=== PATIENT | male | born 1960 | race Caucasian/White ===

== ENCOUNTER 2018-06-22 10:08 | Emergency (ER) | payer OTHER, SELFPAY ==
[2018-06-22] VITALS (8 sets, daily range): BP systolic 100–121; BP diastolic 56–77; PULSE 61–107; RESP 15–23; TEMP 36.7; O2SAT 97–99
[2018-06-22 11:01] LABS: Add Manual Diff / Slide Review NO; Basophils Absolute Auto 100 /uL (0-100); Basophils Percent Auto 1.2 % (0-2); Eosinophils Absolute Auto 100 /uL (0-450); Eosinophils Percent Auto 2.2 % (2-4); Hematocrit 42.5 % (41-53); Hemoglobin 14.5 g/dL (13.5-17.5); Lymphocytes Absolute Auto 1200 /uL (1100-4500); Lymphocytes Percent Auto 22.1 % (25-40); Mean Corpuscular Volume 82.5 fL (80-100); Monocytes Absolute Auto 600 /uL (0-900); Monocytes Percent Auto 10.3 % (3-14); Neutrophils Absolute Auto 3600 /uL (1500-7000); Neutrophils Percent Auto 64.2 % (50-75); Platelet Count 144 X10^3/uL (150-400); Red Blood Cell Count 5.16 X10^6/uL (4.5-5.9); Red Cell Distribution Width 14.3 % (11.6-14.8); White Blood Cell Count 5.6 X10^3/uL (4.5-11.0)
[2018-06-22 11:04] LABS: Alanine Aminotransferase 38 IU/L (21-72); Albumin 4.2 g/dL (3.5-5.0); Albumin Globulin Ratio 1.5 (1.0-2.8); Alkaline Phosphatase 55 U/L (38-126); Aspartate Aminotransferase 27 IU/L (17-59); BUN Creatinine Ratio 26.9 (6-22); Bilirubin Total 0.8 mg/dL (0.2-1.3); Blood Urea Nitrogen 43 mg/dL (9-20); Calcium 9.2 mg/dL (8.4-10.2); Carbon Dioxide 22 mmol/L (22-32); Chloride 102 mmol/L (98-107); Creatine Kinase 140 U/L (55-170); Estimated Glomerular Filt Rate 44.6 mL/min (>60); Globulin 2.8 g/dL (1.7-4.1); Glucose 249 mg/dL (70-100); Potassium 4.5 mmol/L (3.4-5.1); Sodium 137 mmol/L (137-145)
[2018-06-22] MEDS: SODIUM CHLORIDE 0.9% 1,000 ML 1000 ML IV (11:06)
[2018-06-22 11:16] LABS: Troponin I < 0.012 ng/mL (0.01-0.034)
[2018-06-22 11:20] LABS: CKMB % Relative Index 1.8 % (1.5-5.0); Creatine Kinase MB 2.46 ng/mL (<2.37); HEMOLYSIS 30 (0-50)
[2018-06-22] MEDS: DIGOXIN 500 MCG/2 ML AMPUL 250 MCG IV (11:24)
--- NOTE | 2018-06-26 13:03 | ED_ITS ---
HPI - Dizziness General Chief Complaint: Dizziness Stated Complaint: LOW BP Time Seen by Provider: 06/22/18 10:16 Source: patient and family Mode of arrival: ambulatory Limitations: no limitations History of Present Illness HPI Narrative: Patient states that he was at [employer] today when he felt lightheaded. Pt states he sat down on the pew and felt somewhat better but ultimately, decided to come to the emergency department because he still had a faint sense of lightheadedness. Patient states that now, he is feeling totally normal. Patient denies chest pain, shortness of breath, or palpitations. No nausea or vomiting. No diaphoresis. Patient has had an episode like this occasionally before, but not associated with any other symptoms. Patient states he has otherwise been feeling well and has no complaints. No swelling in his legs. No calf tenderness or pain. Patient does admit to not drinking as much fluid as he should. No recent vomiting or diarrhea. No other complaints at this time. No known history of dysrhythmia. Patient is diabetic, and also takes carvedilol for hypertension. His carvedilol dose was recently increased, though patient denies having any symptoms in preceding days associated with taking his medication. Related Data Home Medications Medication Instructions Recorded Confirmed acetaminophen 500 mg PO #0 tab 12/01/15 omeprazole 20 mg PO QDAY #0 12/01/15 Review of Systems Constitutional Denies chills, Denies fever(s), Denies lethargy and Denies weakness Eyes Denies change in vision, Denies eye discharge, Denies irritation and Denies loss of vision ENT Ears, Nose, Mouth, and Throat: Denies change in voice, Denies neck pain and Denies sore throat Cardiovascular Denies chest pain, Denies irregular heart rhythm, Reports lightheadedness, Denies palpitations, Denies dyspnea, Denies dyspnea on exertion and Denies orthopnea Respiratory Denies cough, Denies dyspnea, Denies dyspnea on exertion and Denies wheezing Gastrointestinal Gastrointestinal: Denies abdominal pain, Denies change in bowel habits, Denies diarrhea, Denies nausea and Denies vomiting Genitourinary Denies hematuria, Denies flank pain, Denies urinary incontinence and Denies urinary urgency Musculoskeletal Denies neck pain Integumentary/Breasts Denies pruritus, Denies erythema, Denies rash and Denies wounds Neurologic Denies confusion, Denies loss of vision and Denies weakness Psychiatric Denies anxiety, Denies confusion, Denies depression, Denies homicidal ideation and Denies suicidal ideation Endocrine Denies palpitations Hematologic/Lymphatic Denies easy bruising Allergic/Immunologic Denies wheezing PFSH Medical History HTN (hypertension) (Acute) Diabetes (Acute) Surgical History No pertinent past surgical history (Acute) Social History Smoking Status: Never smoker Social History Smoking Status: Never smoker Exam Initial Vital Signs Initial Vital Signs: Vital Signs Temperature 98.1 F 06/22/18 10:22 Pulse Rate 103 H 06/22/18 10:22 Respiratory Rate 20 06/22/18 10:22 Blood Pressure 100/74 06/22/18 10:22 Pulse Oximetry 98 06/22/18 10:22 Const General: cooperative and well developed Nutritional Appearance: well nourished Orientation: alert, awake, oriented x3 and not confused HENMT Head: normocephalic and atraumatic Ears: external ears normal Nose: external nose normal and No nasal discharge Face and sinus: face symmetric and No dry mucous membranes Mouth: oral mucosae normal and moist mucous membranes Teeth and gingiva: dentition normal Eyes General: appearance normal, both eyes and all related structures Eyelids: eyelids normal Conjunctivae: conjunctivae normal Sclera: sclerae normal Pupils: PERRL EOM: EOM intact bilaterally Neck Neck: normal visual inspection, trachea midline, No lymphadenopathy, No midline deformity and No JVD Lymphatic: No lymphedema Chest Chest: normal inspection of the chest Resp Effort & Inspection: normal respiratory effort, able to speak in complete sentences, no respiratory distress and no use of accessory muscles Auscultation: clear to auscultation bilaterally, no rales, no rhonchi and no wheezes Cardio Rate: abnormal rate Rhythm: abnormal rhythm ( Irregularly irregular) Heart Sounds: no click, no gallops, no murmurs and no rubs Pulses: normal peripheral pulses GI Inspection: non-distended Palpation: soft, no hepatosplenomegaly, No guarding, No pulsatile mass and No tender Auscultation: normal bowel sounds Back/Spine/Pelvis Back: No CVA tenderness Cervical Spine: cervical ROM normal and No pain with cervical ROM Thoracic/Lumbar Spine: thoracic and lumbar spine normal to inspection Skin General: no rashes or lesions noted, No jaundice and No petechiae Neuro General: alert, oriented x3, gait normal and no focal motor deficits Speech: speech normal Extrem General: full ROM, no clubbing, cyanosis or edema, no pedal edema and no calf tenderness Psych Appearance: well kempt Mental Status: mental status grossly normal Attitude: cooperative Thought Content: normal and suicidality Judgment: judgment good Course Course Narrative: patient was worked up in the emergency department with labs and EKG, and given IV fluids. EKG did show atrial fibrillation without rapid ventricular response. Patient was given a dose of IV digoxin, after which he did convert to a normal sinus rhythm. Patient continued to feel good, and was able to ambulate about the emergency department thought difficulty. He remained in normal sinus rhythm. His labs were unremarkable. He remained hemodynamic ally stable. I did feel that the patient should follow up with Cardiology, but given his ready conversion back to normal sinus rhythm and the uncertainty of whether he had been in atrial fibrillation before, I did not feel that he needed inpatient management at this time. We have discussed the usual indications for return. At this point in time, I will not add any new medication have the patient stay on the medication he is already on, and let Cardiology determine the best plan from this point out. Orders Ordered: Discontinued Medications Digoxin (Lanoxin) 250 mcg IV NOW ONE Stop: 06/22/18 11:18 Last Admin: 06/22/18 11:24 Dose: 250 mcg Sodium Chloride (Normal Saline 0.9%) 1,000 mls @ 1,000 mls/hr IV BOLUS ONE Stop: 06/22/18 11:50 Last Infusion: 06/22/18 11:57 Dose: 0 mls/hr Admin: 06/22/18 11:06 Dose: 1,000 mls/hr MDM - Dizziness Medical Records Attestation: I reviewed the patient's medical records. Lab Data Attestation: I reviewed the patient's lab results. Result diagrams: 06/22/18 10:32 06/22/18 10:32 Lab Results 06/22/18 06/22/18 Range/Units 10:32 10:32 WBC 5.6 (4.5-11.0) X10^3/uL RBC 5.16 (4.5-5.9) X10^6/uL Hgb 14.5 (13.5-17.5) g/dL Hct 42.5 (41-53) % MCV 82.5 (80-100) fL MCH 28.0 (26-34) PG MCHC 34.0 (30-36) % RDW 14.3 (11.6-14.8) % Plt Count 144 L (150-400) X10^3/uL Neut % (Auto) 64.2 (50-75) % Lymph % (Auto) 22.1 L (25-40) % Lares % (Auto) 10.3 (3-14) % Eos % (Auto) 2.2 (2-4) % Baso % (Auto) 1.2 (0-2) % Neut # (Auto) 3600 (9067-0906) /uL Lymph # (Auto) 1200 (6101-4423) /uL La[place] # (Auto) 600 (0-900) /uL Eos # (Auto) 100 (0-450) /uL Baso # (Auto) 100 (0-100) /uL Sodium 137 (137-145) mmol/L Potassium 4.5 (3.4-5.1) mmol/L Chloride 102 (98-107) mmol/L Carbon Dioxide 22 (22-32) mmol/L BUN 43 H (9-20) mg/dL Creatinine 1.60 H (0.66-1.25) mg/dL Estimated GFR 44.6 L (>60) mL/min BUN/Creatinine Ratio 26.9 H (6-22) Glucose 249 H (70-100) mg/dL Calcium 9.2 (8.4-10.2) mg/dL Total Bilirubin 0.8 (0.2-1.3) mg/dL AST 27 (17-59) IU/L ALT 38 (21-72) IU/L Alkaline Phosphatase 55 (38-126) U/L Total Creatine Kinase 140 (55-170) U/L CK-MB (CK-2) 2.46 H (<2.37) ng/mL CK-MB (CK-2) Rel Index 1.8 (1.5-5.0) % Troponin I < 0.012 (0.01-0.034) ng/mL Total Protein 7.0 (6.3-8.2) g/dL Albumin 4.2 (3.5-5.0) g/dL Globulin 2.8 (1.7-4.1) g/dL Albumin/Globulin Ratio 1.5 (1.0-2.8) Point of Care Testing Glucose POC 257 ECG Data Attestation: I personally reviewed and interpreted this ECG as follows: ( See below:) Interpretation: 2nd 12 lead EKG performed June 22, 2018 at 12:34 p.m., as follows: Regular ventricular rhythm with a rate of 61 beats per minute SD interval 208 millisecond QRS duration 97 millisecond QTC interval 406 milliseconds no ectopy nonspecific ST T wave changes comparison with EKG from earlier today reveals conversion from atrial fibrillation to current state of normal sinus rhythm. Interpretation: Normal sinus rhythm; no STEMI; normal EKG, as interpreted by ED MD. Discharge Plan Departure Patient Disposition: Home Clinical Impression: Light-headedness Atrial fibrillation Qualifiers: Atrial fibrillation type: unspecified Qualified Code(s): I48.91 - Unspecified atrial fibrillation Discharge Date/Time: 06/22/18 14:03 Interventions: ED Discharge Assessment Last Done: 06/22/18 14:02 Instructions: DI for Atrial Fibrillation, DI for Dizziness-Nonvertigo Prescriptions: No Action acetaminophen 500 MG tablet 500 mg PO Qty: 0 RF: 0 omeprazole 20 MG capsule,delayed release(DR/EC) 20 mg PO QDAY Qty: 0 RF: 0 Referrals: [facility] Cardiology [Provider Group] Paige Serrano PA-C [Primary Care Provider] -
== END 2018-06-22 14:03 | disposition home or self-care (01) ==
PROVIDERS: Emergency Provider Emergency Medicine; PCP Physician Assistant Medical
DX: R42 Dizziness and giddiness (principal); I48.91 Unspecified atrial fibrillation
CPT/HCPCS: 36591; 80053; 82550; 82553; 82962; 84484; 85025; 93005; 96361; 96374; 99283; 99284; J1160

== ENCOUNTER → 2018-10-15 13:43 | Outpatient (CLI) | payer OTHER, SELFPAY ==
--- NOTE | 2018-10-15 | DI.ECHO.S_ITS ---
[place] [facility]---------+ [facility] +---------+ : : [address] [address] : : : : [id number] : : : : Phone: [phone] Echocardiogram Report + + :Name: PRISCILA THOMAS Study Date: 10/15/2018 Height: 73 in : :[facility] Exam Location: [facility] Weight: 282 lb : : Gender: Male BSA: 2.5 m2 : :: 1960 Age: 58 yrs BP: 115/75 mmHg: :Reason For Study: HTN : : Performed By: Ean Gallagher : :Referring: KUNAL GALVIN : + + Interpretation Summary Left ventricular size is at the upper limits of normal but systolic function is normal without focal wall motion abnormalities with the ejection fraction visually estimated to be 60-65%. There is normal left ventricular wall thickness. The right ventricle is normal in size and function. Pulmonary artery pressures cannot be estimated because of the lack of a measurable TR jet velocity but the IVC suggests a CVP of around 3 mmHg. The left atrium is mildly dilated. There is no significant valvular heart disease. The ascending aorta and aortic arch are mild-moderately enlarged. Procedure: A two-dimensional transthoracic echocardiogram with color flow and Doppler was performed. The study quality was technically adequate. There is no prior echocardiogram noted for this patient. The patient was in normal sinus rhythm during the exam. Left Ventricle: Left ventricular size is at the upper limits of normal. There is normal left ventricular wall thickness. Left ventricular systolic function is normal without focal wall motion abnormalities. The ejection fraction is estimated to be 60-65%. Diastolic function could not be accurately assessed due to unobtainable data. Right Ventricle: The right ventricle is normal in size and function. Atria: The left atrium is mildly dilated. Right atrial size is normal. The interatrial septum is intact with no evidence for an atrial septal defect. Mitral Valve: The mitral valve is normal in structure and function. There is trace mitral regurgitation. Aortic Valve: The aortic valve is trileaflet. The aortic valve is slightly calcified. The aortic valve opens well. No aortic regurgitation is present. Tricuspid Valve: The tricuspid valve is normal in structure and function. No tricuspid regurgitation. Pulmonary artery pressures cannot be estimated because of the lack of a measurable TR jet velocity but the IVC suggests a CVP of around 3 mmHg. Pulmonic Valve: The pulmonic valve is normal in structure and function. There is trace pulmonic regurgitation. There is no significant valvular heart disease. Great Vessels: The aortic root is normal size. The ascending aorta is mild- moderately enlarged. The aortic arch is mild-moderately enlarged. The pulmonary artery is normal size. The IVC is of normal diameter and collapses greater than 50% with a sniff. This suggests a low right atrial pressure of 3 mm Hg. Pericardium/ Pleura There is no pericardial effusion. There is no pleural effusion. MMode/2D Measurements & Calculations LVIDd: 6.0 cm LVOT diam: 2.6 cm LVIDs: 3.5 cm Ao root diam: 3.8 cm FS: 42.5 % Aortic Jxn: 3.2 cm EPSS: 0.24 cm asc Aorta Diam: 4.3 cm IVSd: 0.66 cm Ao Arch Diam (Prox Trans): 3.6 cm LVPWd: 1.1 cm LV leonard. diameter/BSA (cm/m^2): 2.4 LV sys. diameter/BSA (cm/m^2): 1.4 LA dimension: 5.3 cm RA long axis: 4.9 cm LA A2 area: 28.2 cm2 RA area: 19.0 cm2 LA A4 area: 26.8 cm2 RA vol: 62.7 ml LA length (vol): 6.9 cm RA : 25.2 ml/m2 LA vol: 92.8 ml IVC diam: 1.1 cm LA vol index: 37.3 ml/m2 Doppler Measurements & Calculations Ao V2 max: 138.3 cm/sec LVOT Max Dwight: 101.5 cm/sec Ao V2 mean: 97.6 cm/sec LV V1 max P.1 mmHg Ao max P.6 mmHg LV V1 VTI: 22.4 cm Ao mean P.2 mmHg RAF(I,D): 4.2 cm2 Ao V2 VTI: 28.7 cm RAF(V,D): 4.0 cm2 sev ratio: 0.78 RAF indexed to BSA (cm^2/m^2): 1.7 MV E max dwight: 71.6 cm/sec PA V2 max: 74.1 cm/sec MV A max dwight: 75.3 cm/sec PA V2 mean: 55.6 cm/sec MV E/A: 0.95 PA mean P.3 mmHg Med Peak E' Dwight: 7.6 cm/sec PA pr(Accel): 39.1 mmHg E/E' med: 9.4 PA Accel Time: 0.08 sec MV dec time: 0.20 sec SV(LVOT): 120.9 ml Reading Physician:SALVADOR
== END ==
PROVIDERS: PCP Physician Assistant Medical; Visit Provider Internal Medicine Cardiovascular Disease
DX: I77.89 Other specified disorders of arteries and arterioles (principal); I10 Essential (primary) hypertension
CPT/HCPCS: 93306

== ENCOUNTER 2019-01-22 10:06 | Observation (INO) | payer OTHER, SELFPAY ==
[2019-01-22] VITALS (11 sets, daily range): BP systolic 100–127; BP diastolic 52–75; PULSE 63–113; RESP 12–20; TEMP 36.3–36.7; O2SAT 91–111; BMI 36.6; BMI 37.0
--- NOTE | 2019-01-22 10:11 | DI.RAD.S_ITS ---
PROCEDURE: XR CHEST 1V INDICATIONS: chest pain TECHNIQUE: One view of the chest was acquired. COMPARISON: [facility], CHEST 1 VIEW, 08/07/2016, 13:03. [facility], , CHEST 2 VIEW, 07/02/2015, 23:37. FINDINGS: Surgical changes and devices: None. Lungs and pleura: Lungs are clear. No pleural effusions or pneumothorax. Mediastinum: Mediastinal contours appear normal. Heart size is normal. Bones and chest wall: No suspicious bony lesions. Overlying soft tissues appear unremarkable. IMPRESSION: Normal for age, source of current chest pain symptoms is not seen. Dictated by: Chris Corral M.D. on 01/22/2019 at 10:39 Approved by: Chris Corral M.D. on 01/22/2019 at 10:40
[2019-01-22 10:46] LABS: Add Manual Diff / Slide Review NO; Basophils Absolute Auto 100 /uL (0-100); Basophils Percent Auto 0.9 % (0-2); Eosinophils Absolute Auto 100 /uL (0-450); Eosinophils Percent Auto 1.5 % (2-4); Hematocrit 43.5 % (41-53); Hemoglobin 14.8 g/dL (13.5-17.5); Lymphocytes Absolute Auto 1100 /uL (1100-4500); Lymphocytes Percent Auto 16.1 % (25-40); Mean Corpuscular Hemoglobin 28.5 PG (26-34); Mean Corpuscular Volume 83.8 fL (80-100); Monocytes Absolute Auto 700 /uL (0-900); Monocytes Percent Auto 9.6 % (3-14); Neutrophils Absolute Auto 4900 /uL (1500-7000); Neutrophils Percent Auto 71.9 % (50-75); Platelet Count 149 X10^3/uL (150-400); Red Cell Distribution Width 14.6 % (11.6-14.8); White Blood Cell Count 6.8 X10^3/uL (4.5-11.0)
[2019-01-22 10:54] LABS: Alanine Aminotransferase 25 IU/L (21-72); Albumin 4.2 g/dL (3.5-5.0); Albumin Globulin Ratio 1.4 (1.0-2.8); Alkaline Phosphatase 64 U/L (38-126); Aspartate Aminotransferase 28 IU/L (17-59); BUN Creatinine Ratio 21.1 (6-22); Bilirubin Total 0.8 mg/dL (0.2-1.3); Blood Urea Nitrogen 40 mg/dL (9-20); Calcium 9.9 mg/dL (8.4-10.2); Carbon Dioxide 26 mmol/L (22-32); Chloride 104 mmol/L (98-107); Creatine Kinase 193 U/L (55-170); Estimated Glomerular Filt Rate 36.5 mL/min (>60); Glucose 222 mg/dL (70-100); HEMOLYSIS < 15 (0-50); Lipase 489 U/L (23-300); PTT Partial Thromboplastin Tim 32 SECONDS (26.4-36.2); Potassium 4.2 mmol/L (3.4-5.1); Sodium 139 mmol/L (137-145); Total Protein 7.2 g/dL (6.3-8.2)
--- NOTE | 2019-01-22 10:55 | ED_ITS ---
HPI - Arrhythmia/Palpitations General Chief Complaint: Arrhythmia/Palpitations Stated Complaint: Patient says he's in AFIB Time Seen by Provider: 01/22/19 10:07 Source: patient and family Mode of arrival: Ambulatory Limitations: no limitations History of Present Illness HPI narrative: 58M nonsmoker with HTN and Afib presents with the chief complaint of an episode of left anterior chest pain this morning along with palpitations and dizziness. He states he feels like he is back in AFib. He is currently not anticoagulated as his video clerk and ensure insert discussing whether not they will cover Eliquis. His chads Vasc is 2. He denies any provocation or palliation of his pain which is now gone. He denies recent travel or history of clot. He feels rather certain that today's episode started this morning, however he is historically not super MD complaint: rapid heart beat, irregular heart beat and atrial fibrillation Onset (ago): hour(s) Duration: intermittent Severity: moderate Context: occurred during rest Arrhythmia history: atrial fibrillation Associated symptoms: shortness of breath Related Data Home Medications Medication Instructions Recorded Confirmed acetaminophen 500 mg PO PRN PRN #0 tab 12/01/15 01/22/19 omeprazole 20 mg PO QDAY #0 12/01/15 Humalog KwikPen Insulin 01/22/19 aspirin 162 mg PO DAILY 01/22/19 01/22/19 glipizide 5 mg PO BID 01/22/19 01/22/19 hydrochlorothiazide 25 mg PO DAILY 01/22/19 01/22/19 insulin glargine [Basaglar KwikPen 15 unit SUBCUT DAILY 01/22/19 01/22/19 U-100 Insulin] losartan 25 mg PO DAILY 01/22/19 01/22/19 lovastatin 20 mg PO DAILY 01/22/19 01/22/19 sildenafil [Viagra] 50 mg PO DAILY PRN 01/22/19 01/22/19 Allergies Allergy/AdvReac Type Severity Reaction Status Date / Time lisinopril Allergy Cough Verified 01/22/19 10:18 morphine AdvReac Vomiting Verified 01/22/19 10:18 Review of Systems Constitutional Constitutional: Denies chills, Denies fatigue, Denies fever(s), Denies frequent falls, Denies lethargy and Denies weakness Eyes Eyes: Denies change in vision, Denies eye discharge, Denies irritation and Denies loss of vision ENT Ears, Nose, Mouth, and Throat: Denies change in voice, Denies dizziness, Denies neck pain, Denies sore throat and Denies throat swelling Cardiovascular Cardiovascular: Denies chest pain, Reports irregular heart rhythm, Reports lightheadedness, Reports palpitations, Reports dyspnea, Reports dyspnea on exertion and Denies orthopnea Respiratory Respiratory: Reports cough, Reports dyspnea, Reports dyspnea on exertion and Denies wheezing Gastrointestinal Gastrointestinal: Denies abdominal pain, Denies change in bowel habits, Denies diarrhea, Denies nausea and Denies vomiting Genitourinary Genitourinary: Denies hematuria, Denies flank pain, Denies urinary incontinence and Denies urinary urgency Musculoskeletal Musculoskeletal: Denies back pain, Denies muscle weakness, Denies neck pain, Denies numbness and Denies tingling Integumentary/Breasts Skin/Breast: Denies pruritus, Denies erythema, Denies rash and Denies wounds Neurologic Neurologic: Denies behavioral changes, Denies confusion, Denies dizziness, Denies frequent falls, Denies loss of vision, Denies numbness, Denies tingling and Denies weakness Psychiatric Psychiatric: Denies anxiety, Denies behavioral changes, Denies confusion, Denies depression, Denies homicidal ideation and Denies suicidal ideation Endocrine Endocrine: Denies fatigue, Denies flushing and Reports palpitations Hematologic/Lymphatic Hematologic/Lymphatic: Denies easy bruising Allergic/Immunologic Allergic/Immunologic: Denies urticaria, Denies throat swelling and Denies wheezing COUNTS INCLUDE 234 BEDS AT THE [facility] Medical History Diabetes (Acute) HTN (hypertension) (Acute) Surgical History No pertinent past surgical history (Acute) Social History Smoking Status: Never smoker Social History Smoking Status: Never smoker Exam Narrative Exam Narrative: GENERAL: [58] year old patient appears stated age. Well- nourished, well-developed patient, in mild distress. HEAD: Atraumatic. Normocephalic. EYES: Pupils equal round and reactive. Extraocular motions intact. No scleral icterus. No injection or drainage. ENT: Nose without bleeding, purulent drainage. Throat without erythema, tonsi llar hypertrophy or exudate. Airway patent. NECK: Trachea midline. Non tender CARDIOVASCULAR: Tachycardic and irregular rhythm without murmurs, gallops, or rubs. RESPIRATORY: Clear to auscultation. Breath sounds equal bilaterally. No wheezes, rales, or rhonchi. GASTROINTESTINAL: Abdomen soft, non-tender, nondistended. EXTREMITIES: No edema or joint tenderness. BACK: Nontender without deformity or crepitance. No flank tenderness. NEURO: AOx3. SKIN: No rash or erythema of visible areas Initial Vital Signs Initial Vital Signs: Vital Signs Temperature 98.1 F 01/22/19 10:11 Pulse Rate 113 H 01/22/19 10:11 Respiratory Rate 20 01/22/19 10:11 Blood Pressure 103/60 01/22/19 10:11 Pulse Oximetry 94 01/22/19 10:11 Scores CHADS-VASc Congestive heart failure: no Hypertension: yes Age 75 years or older: no Diabetes mellitus: yes Stroke, TIA, or TE: no Vascular disease: no Age 65 to 74 years: no Sex category (female): Male CHADS-VASc Score: 2 Course Course Course Narrative: Patient showing improvement after Cardizem push and drip, AFib in the 90 Orders Ordered: ED Orders 01/22/19 10:11 XR chest 1V Stat EKG-12 Lead Stat 01/22/19 10:34 Complete Blood Count AUTO DIFF Stat Comprehensive Metabolic Panel Stat Lipase Stat Partial Thromboplastin Time Stat Prothrombin Time INR Stat Troponin & CK Cardiac Panel Stat DILTIAZEM (Diltiazem 125 Mg/125 Ml-D5w) 125 mg in 125 mls @ 5 mls/hr IV TITRATE GOLD; Protocol Last Admin: 01/22/19 11:23 Dose: 5 mg/hr, 5 mls/hr Documented by: UMA Discontinued Medications Diltiazem HCl (Cardizem) 10 mg IV NOW ONE Stop: 01/22/19 11:13 Last Admin: 01/22/19 11:22 Dose: 10 mg Documented by: UMA Vital Signs Vital signs: Vital Signs - 8 hr 01/22/19 10:11 01/22/19 11:11 01/22/19 11:22 Temperature 98.1 F Pulse Rate 113 H 109 H 111 H Respiratory Rate 20 19 Blood Pressure 103/60 127/74 Blood Pressure [Left Arm] 127/55 L Pulse Oximetry 94 91 MDM - Arrhythmia/Palpitations Lab Data Result diagrams: 01/22/19 10:34 01/22/19 10:34 Labs: Lab Results 01/22/19 01/22/19 01/22/19 Range/Units 10:34 10:34 10:34 WBC 6.8 (4.5-11.0) X10^3/uL RBC 5.20 (4.5-5.9) X10^6/uL Hgb 14.8 (13.5-17.5) g/dL Hct 43.5 (41-53) % MCV 83.8 (80-100) fL MCH 28.5 (26-34) PG MCHC 34.0 (30-36) % RDW 14.6 (11.6-14.8) % Plt Count 149 L (150-400) X10^3/uL Neut % (Auto) 71.9 (50-75) % Lymph % (Auto) 16.1 L (25-40) % [place] % (Auto) 9.6 (3-14) % Eos % (Auto) 1.5 L (2-4) % Baso % (Auto) 0.9 (0-2) % Neut # (Auto) 4900 (9719-6150) /uL Lymph # (Auto) 1100 (3846-5966) /uL [place] # (Auto) 700 (0-900) /uL Eos # (Auto) 100 (0-450) /uL Baso # (Auto) 100 (0-100) /uL PT 11.0 (10.1-12.7) SECONDS INR 1.0 (0.9-1.3) APTT 32 (26.4-36.2) SECONDS Sodium 139 (137-145) mmol/L Potassium 4.2 (3.4-5.1) mmol/L Chloride 104 (98-107) mmol/L Carbon Dioxide 26 (22-32) mmol/L BUN 40 H (9-20) mg/dL Creatinine 1.90 H (0.66-1.25) mg/dL Estimated GFR 36.5 L (>60) mL/min BUN/Creatinine Ratio 21.1 (6-22) Glucose 222 H (70-100) mg/dL Calcium 9.9 (8.4-10.2) mg/dL Total Bilirubin 0.8 (0.2-1.3) mg/dL AST 28 (17-59) IU/L ALT 25 (21-72) IU/L Alkaline Phosphatase 64 (38-126) U/L Total Creatine Kinase 193 H (55-170) U/L CK-MB (CK-2) 2.45 H (<2.37) ng/mL CK-MB (CK-2) Rel Index 1.3 L (1.5-5.0) % Troponin I < 0.012 (0.01-0.034) ng/mL Total Protein 7.2 (6.3-8.2) g/dL Albumin 4.2 (3.5-5.0) g/dL Globulin 3.0 (1.7-4.1) g/dL Albumin/Globulin Ratio 1.4 (1.0-2.8) Lipase 489 H (23-300) U/L Imaging Data Chest x-ray: Radiologist's impression: 15 DO Yamil Shook Patient Imaging - Josh Fung 58 M 1960 ACTIVITY DATE EXAM STATUS AUTHOR 01/22/19 10:11 [place] [address] XRay Report Signed Patient: Josh Fung DMR#: [id number] : 1960Acct:[id number] Age/Sex: 58 / MDate of Service: 01/22/19 Loc: ED Accession Number: [id number] Procedure: XR chest 1V Ordering Provider: Vladimir Aldridge D.O. PROCEDURE: XR CHEST 1V INDICATIONS: chest pain TECHNIQUE: One view of the chest was acquired. COMPARISON: [facility], , CHEST 1 VIEW, 08/07/2016, 13:03. [facility], , CHEST 2 VIEW, 07/02/2015, 23:37. FINDINGS: Surgical changes and devices: None. Lungs and pleura: Lungs are clear. No pleural effusions or pneumothorax. Mediastinum: Mediastinal contours appear normal. Heart size is normal. Bones and chest wall: No suspicious bony lesions. Overlying soft tissues appear unremarkable. IMPRESSION: Normal for age, source of current chest pain symptoms is not seen. Dictated by: Chris Corral M.D. on 01/22/2019 at 10:39 Approved by: Chris Corral M.D. on 01/22/2019 at 10:40 ECG Data Attestation: I personally reviewed and interpreted this ECG as follows: Prior ECG tracings: not available for review Interpretation: Afib in 80s, no ischemic change. No ST segmental change Discharge Plan Departure Patient Disposition: Admitted As Inpatient Clinical Impression: Atrial fibrillation with rapid ventricular response
[2019-01-22 11:05] LABS: Troponin I < 0.012 ng/mL (0.01-0.034)
[2019-01-22 11:09] LABS: CKMB % Relative Index 1.3 % (1.5-5.0); Creatine Kinase MB 2.45 ng/mL (<2.37)
[2019-01-22] MEDS: dilTIAZem 5 MG/ML SDV 10 MG IV (11:22)
[2019-01-22] MEDS: DILTIAZEM 125 MG/125 ML PIGGYBACK IV (11:23)
--- NOTE | 2019-01-22 15:24 | PC.ADMIT ---
[email or web address] [facility]on Admission Note: The patient,Josh Fung,58 y/o, was given written information regarding hospital policies, unit procedures and contact persons. Patient's smoking status: Never smoker. Vital Signs - 8 hr 01/22/19 10:11 01/22/19 11:11 01/22/19 11:22 Temperature 98.1 F Pulse Rate 113 H 109 H 111 H Respiratory Rate 20 19 Blood Pressure 103/60 127/74 Blood Pressure [Left Arm] 127/55 L Pulse Oximetry 94 91 01/22/19 12:15 01/22/19 13:17 01/22/19 13:48 Temperature 97.7 F Pulse Rate 107 H 111 H 78 Respiratory Rate 19 18 12 Blood Pressure 122/52 L Blood Pressure [Left Arm] 105/58 L 100/65 Pulse Oximetry 91 111 H 95 Rec'd pt to rm 101 via w/c from ED at 1350. Pt is AO x3 and making needs known with clear speech. at bedside. Completed admission assessment. Oriented to room, environment, fall risk, and instructed on use of call light and to wait for assistance prior to getting OOB. Pt agreeable and verbalizes understanding. Pt endorses a small amount of dizziness but otherwise denies symptoms. Dilt gtt infusing at 7.5 mg/hr to patent PIV.
[2019-01-22] MEDS: ACETAMINOPHEN 325 MG TABLET 650 MG PO (15:36)
--- NOTE | 2019-01-22 15:42 | PM.HP.1 ---
History of Present Illness History of Present Illness Date Patient Seen: 01/22/19 Time Patient Seen: 14:30 Chief complaint: Patient says he's in AFIB Narrative: Mr. Fung is a 58-year-old male with past medical history of type 2 diabetes, hypertension, atrial fibrillation, RCC s/p L nephrectomy, and hyperlipidemia who presented to the emergency room with complaint of palpitations. Patient states that around 6:00 a.m. this morning he started feeling his heart beat very rapidly and irregularly in his neck, he further felt some dizziness at the time but denied any nausea, vomiting shortness of breath, chest pain or pressure, vision changes, diaphoresis. Later on, on his way to the emergency room about an hour later, he had another episode of palpitations but this time with some left-sided chest pressure that went somewhat into his left arm with associated nausea and diaphoresis. This episode lasted about 3 minutes and then resolved completely. He has had no further, or prior, episodes of chest pain. Prior to his symptoms he took a Viagra this morning and had intercourse. In the ED, patient was in atrial fibrillation with RVR with a rate into the 120s. He was started on a diltiazem drip in the ED and had improvement in his rate. He was then admitted to medicine for atrial fibrillation with RVR. Shortly after admission while on the diltiazem drip, he converted to normal sinus rhythm and his diltiazem drip was stopped. Patient History Medical History (Updated 01/22/19 @ 17:13 by Attila Clay DO) Atrial fibrillation (Acute) Diabetes (Acute) HTN (hypertension) (Acute) Renal cell cancer (Acute) Surgical History (Updated 01/22/19 @ 14:13 by Marty Grijalva RN) History of left nephrectomy (Acute) No pertinent past surgical history (Acute) Social History household members: spouse Smoking Status: Never smoker Family & Social History Social History: household members spouse Safety & Behavioral: Feels Safe in Current Yes Environment Been Physically Hurt or No Threatened By a Person Suicidal Ideation Description None Suicide Plan Description No Plan Tobacco & Substance use: Smoking Status Never smoker alcohol intake frequency holiday/special occasion Substance Use Type does not use Meds Home Medications and Allergies Home Medications Medication Instructions Recorded Confirmed Type acetaminophen 500 mg PO PRN PRN #0 tab 12/01/15 01/22/19 History omeprazole 20 mg PO DAILY PRN #0 12/01/15 01/22/19 History aspirin 162 mg PO DAILY 01/22/19 01/22/19 History glipizide 5 mg PO BID 01/22/19 01/22/19 History hydrochlorothiazide 25 mg PO DAILY 01/22/19 01/22/19 History insulin glargine [Basaglar KwikPen 15 unit SUBCUT DAILY 01/22/19 01/22/19 History U-100 Insulin] insulin lispro [Humalog KwikPen 40 unit SUBCUT DAILY 01/22/19 01/22/19 History Insulin] losartan 25 mg PO QPM 01/22/19 01/22/19 History lovastatin 20 mg PO QPM 01/22/19 01/22/19 History sildenafil [Viagra] 50 mg PO DAILY PRN 01/22/19 01/22/19 History Allergies Allergy/AdvReac Type Severity Reaction Status Date / Time lisinopril Allergy Cough Verified 01/22/19 10:18 morphine AdvReac Vomiting Verified 01/22/19 10:18 Review of Systems Review of Systems Narrative: All other systems reviewed with the patient and are negative unless otherwise stated. Exam Vital Signs (past 8 hours): - 01/22/19 10:11 01/22/19 11:11 01/22/19 11:22 Temperature 98.1 F Pulse Rate 113 H 109 H 111 H Respiratory Rate 20 19 Blood Pressure 103/60 127/74 Blood Pressure [Left Arm] 127/55 L Pulse Oximetry 94 91 01/22/19 12:15 01/22/19 13:17 01/22/19 13:48 Temperature 97.7 F Pulse Rate 107 H 111 H 78 Respiratory Rate 19 18 12 Blood Pressure 122/52 L Blood Pressure [Left Arm] 105/58 L 100/65 Pulse Oximetry 91 111 H 95 01/22/19 15:22 Temperature 97.3 F L Pulse Rate 101 H Respiratory Rate 14 Blood Pressure 119/75 Blood Pressure [Left Arm] Pulse Oximetry Oxygen Delivery Method Room Air Narrative Exam Narrative: GENERAL APPEARANCE: Well developed, well nourished, in no acute distress. SKIN: Inspection of the skin reveals no rashes, ulcerations or petechiae. HEENT: The sclerae were anicteric and conjunctivae were pink and moist. Extraocular movements were intact and pupils were equal, round with normal accommodation. External inspection of the ears and nose showed no scars, lesions, or masses. Lips, teeth, and gums showed normal mucosa. The oral mucosa, hard and soft palate, tongue and posterior pharynx were unremarkable. NECK: Supple and symmetric. There was no thyroid enlargement, and no tenderness, or masses were felt. CHEST: Normal AP diameter and normal contour without any kyphoscoliosis. LUNGS: Auscultation of the lungs revealed no wheezes, rhonchi, or rales. CARDIOVASCULAR: There was a regular rate and rhythm without any murmurs, gallops, rubs. Peripheral pulses were 2+ and symmetric. ABDOMEN: Soft and nontender with normal bowel sounds. No ascites was noted. MUSCULOSKELETAL: There was no tenderness or effusions noted. Muscle strength and tone were normal. EXTREMITIES: No cyanosis, clubbing or edema. NEUROLOGIC: Alert and oriented x 3. Normal affect. Gait was normal. Strength is +5/5 in the Upper Extremities and Lower Extremities Bilaterally. Sensation to touch was normal. Objective Labs Result Diagrams: 01/22/19 10:34 01/22/19 10:34 Labs: Laboratory Results - last 24 hr 01/22/19 01/22/19 01/22/19 10:34 10:34 10:34 WBC 6.8 RBC 5.20 Hgb 14.8 Hct 43.5 MCV 83.8 MCH 28.5 MCHC 34.0 RDW 14.6 Plt Count 149 L Neut % (Auto) 71.9 Lymph % (Auto) 16.1 L [place] % (Auto) 9.6 Eos % (Auto) 1.5 L Baso % (Auto) 0.9 Neut # (Auto) 4900 Lymph # (Auto) 1100 [place] # (Auto) 700 Eos # (Auto) 100 Baso # (Auto) 100 PT 11.0 INR 1.0 APTT 32 Sodium 139 Potassium 4.2 Chloride 104 Carbon Dioxide 26 BUN 40 H Creatinine 1.90 H Estimated GFR 36.5 L BUN/Creatinine Ratio 21.1 Glucose 222 H Calcium 9.9 Total Bilirubin 0.8 AST 28 ALT 25 Alkaline Phosphatase 64 Total Creatine Kinase 193 H CK-MB (CK-2) 2.45 H CK-MB (CK-2) Rel Index 1.3 L Troponin I < 0.012 Total Protein 7.2 Albumin 4.2 Globulin 3.0 Albumin/Globulin Ratio 1.4 Lipase 489 H Assessment & Plan Assessment & Plan narrative: Mr. Fung is a 58-year-old male with past medical history of type 2 diabetes, hypertension, atrial fibrillation, and hyperlipidemia who presented to the emergency room with complaint of palpitations. He was admitted for AFib with RVR and was on diltiazem drip, however he can't now converted to normal sinus rhythm and is currently off of diltiazem. 1. Paroxysmal Atrial fibrillation with rapid ventricular response /atrial flutter, acute, present on admission, resolved - patient presented in atrial fibrillatiion, after diltiazem infusion he was then in atrial flutter on telemetery but rate controlled. Now back in normal sinus rhythm. Sildenafil has been implicated in causing AFib, so we will hold diltiazem drip and continue him on his home Coreg of 25 mg b.i.d. with the hope that he will not need additional rate control agents. He may need to be restarted on diltiazem if he returns into afib or flutter. - continue coreg 25 mg BID - troponins now negative x2. ACS is unlikely. - patient is currently awaiting insurance approval on [employer], could potentially start warfarin but this is pending. Will continue apixaban here at 5 mg BID. - recommend avoidance of sildenafil at this time. - patient has TTE in June, and unless he returns to afib overnight he does not require an echocardiogram at this time. 2. Acute on chronic renal failure - baseline Cr of 1.5-1.6, today 1.9 likely secondary to afib with RVR. He has one kidney after left nephrectomy secondary to renal cell carcinoma. - continue to monitor Cr. encourage oral hydration. - avoid nephrotoxic medications. 3. Hypertension, chronic - -continue home HCTZ, losartan 4. HLD, chronic - -continue home lovastatin 20 mg 5. Type 2 diabetes, unknown control, on insulin - -continue home regimen of basaglar 40 and humalog 15 both given in the AM -consistent carbohydrate diet - FS ACHS, with mod dose sliding scale Code: Full Dispo: admit under observation status DVT: on apixaban. Time Spent With Patient Time with patient: Greater than 35 minutes
[2019-01-22] MEDS: LOVASTATIN 20 MG TABLET PO (16:35)
[2019-01-22] MEDS: LOSARTAN 25 MG TABLET PO (16:35)
[2019-01-22 16:58] LABS: Troponin I < 0.012 ng/mL (0.01-0.034)
--- NOTE | 2019-01-22 17:11 | PC.NURSE ---
Addendum entered by Elise Hill R.N. 01/22/19 20:49: 2030 - Pt Remains in SR. Denies chest pain or lightheadedness. Educated to medications. Pt set up own home c-pap machine. Reinforced safety and call light use. Original Note: 1540 - Pt resting in bed. laboratory monitor demonstrates conversion to SR. Cardizem gtt titrated to off. MD notified. Reinforced safety and call light use. Call light in reach. Supportive at bedside.
[2019-01-22] MEDS: CARVEDILOL 25 MG TABLET PO (20:26)
[2019-01-22] MEDS: APIXABAN 5 MG TABLET PO (20:26)
[2019-01-22] MEDS: INSULIN ASPART 100 UNIT/ML INSULN PEN SUBCUT (20:27)
[2019-01-23 00:04] VITALS: BP 114/66; PULSE 71; RESP 15; TEMP 36.6; O2SAT 95; O2SAT 96
[2019-01-23 03:07] VITALS: BP 108/69; PULSE 67; RESP 17; TEMP 36.6; O2SAT 92
[2019-01-23 04:59] LABS: Add Manual Diff / Slide Review NO; Basophils Absolute Auto 100 /uL (0-100); Basophils Percent Auto 0.9 % (0-2); Eosinophils Absolute Auto 100 /uL (0-450); Eosinophils Percent Auto 2.4 % (2-4); Hematocrit 40.1 % (41-53); Hemoglobin 13.8 g/dL (13.5-17.5); Lymphocytes Absolute Auto 1200 /uL (1100-4500); Lymphocytes Percent Auto 22.1 % (25-40); Mean Corpuscular HGB Conc 34.4 % (30-36); Mean Corpuscular Hemoglobin 28.6 PG (26-34); Mean Corpuscular Volume 83.3 fL (80-100); Monocytes Absolute Auto 500 /uL (0-900); Monocytes Percent Auto 9.2 % (3-14); Neutrophils Absolute Auto 3700 /uL (1500-7000); Neutrophils Percent Auto 65.4 % (50-75); Platelet Count 126 X10^3/uL (150-400); Red Blood Cell Count 4.82 X10^6/uL (4.5-5.9); Red Cell Distribution Width 14.6 % (11.6-14.8); White Blood Cell Count 5.6 X10^3/uL (4.5-11.0)
[2019-01-23 05:12] LABS: BUN Creatinine Ratio 23.1 (6-22); Blood Urea Nitrogen 37 mg/dL (9-20); Carbon Dioxide 25 mmol/L (22-32); Chloride 105 mmol/L (98-107); Cholesterol 177 mg/dL (140-199); Estimated Glomerular Filt Rate 44.5 mL/min (>60); Glucose 171 mg/dL (70-100); HDL Cholesterol 27 mg/dL (40-60); HEMOLYSIS < 15 (0-50); LDL Cholesterol Calculated 105 mg/dL (<100); Potassium 3.7 mmol/L (3.4-5.1); Sodium 137 mmol/L (137-145); Triglycerides 227 mg/dL (35-150)
[2019-01-23 05:55] LABS: TSH w/ Reflex to FT4 0.85 uIU/mL (0.47-4.68)
[2019-01-23 07:00] VITALS: BP 111/71; PULSE 67; RESP 20; TEMP 36.4; O2SAT 98; O2SAT 99
[2019-01-23] MEDS: INSULIN ASPART 100 UNIT/ML INSULN PEN SUBCUT (08:46)
[2019-01-23] MEDS: INSULIN GLARGINE 100 UNIT/ML 3ML PEN 40 UNIT SUBCUT (08:46)
[2019-01-23] MEDS: INSULIN ASPART 100 UNIT/ML INSULN PEN 15 UNIT SUBCUT (08:47)
[2019-01-23] MEDS: INFLUENZA VACCINE 0.5 ML SYRINGE IM (08:52)
--- NOTE | 2019-01-23 08:59 | PC.NURSE ---
Addendum entered by Gem Goff R.N. 01/23/19 13:51: 1200-d/c completed and meds to [facility], Pt walked out to private vehicle with . Follow up in 3 days with PCP. Original Note: Am shift pt is A/o x3, denies CP or palpitations. Tele reads SR, indep. to BR. POC reviewed with Pt, hopeful for d/c today. at bedside, Dr Mckinney into see Pt, reviewed meds and d/c potential. Will run preauth on home meds prior to d/c.
[2019-01-23] MEDS: ASPIRIN EC 81 MG TABLET PO (09:03)
[2019-01-23] MEDS: CARVEDILOL 25 MG TABLET PO (09:03)
[2019-01-23] MEDS: APIXABAN 5 MG TABLET PO (09:04)
[2019-01-23] MEDS: hydroCHLOROthiazide 25 MG TABLET PO (09:04)
--- NOTE | 2019-01-23 10:36 | P.DS_ITS ---
History of Present Illness History of Present Illness Date Patient Seen: 01/22/19 Chief complaint: Patient says he's in AFIB Narrative: Written by Dr. Clay: Mr. Fung is a 58-year-old male with past medical history of type 2 diabetes, hypertension, atrial fibrillation, RCC s/p L nephrectomy, and hyperlipidemia who presented to the emergency room with complaint of palpitations. Patient states that around 6:00 a.m. this morning he started feeling his heart beat very rapidly and irregularly in his neck, he further felt some dizziness at the time but denied any nausea, vomiting shortness of breath, chest pain or pressure, vision changes, diaphoresis. Later on, on his way to the emergency room about an hour later, he had another episode of palpitations but this time with some left-sided chest pressure that went somewhat into his left arm with associated nausea and diaphoresis. This episode lasted about 3 minutes and then resolved completely. He has had no further, or prior, episodes of chest pain. Prior to his symptoms he took a Viagra this morning and had intercourse. In the ED, patient was in atrial fibrillation with RVR with a rate into the 120s. He was started on a diltiazem drip in the ED and had improvement in his rate. He was then admitted to medicine for atrial fibrillation with RVR. Shortly after admission while on the diltiazem drip, he converted to normal sinus rhythm and his diltiazem drip was stopped. Discharge Providers Provider Date of admission: 01/22/19 12:39 Discharge Date: 01/23/19 Primary care physician: Paige Serrano PA-C Discharge provider: Meliza Mckinney DO Summary Hospital Course Discharge Diagnosis: 1. Paroxysmal atrial fibrillation with acute RVR, present on admission. Res olved. 2. Acute kidney injury on chronic kidney disease stage 3, present on admission. Acute kidney injury resolved. 3. Hypertension, chronic, present on admission. Stable. 4. Hyperlipidemia, chronic, present on admission. Stable. 5. Diabetes mellitus type 2, insulin using, present on admission. Stable. Hospital Course: Josh Fung is a 58-year-old male with past medical history significant for hypertension, hyperlipidemia, diabetes mellitus type 2, insulin using, and paroxysmal atrial fibrillation who presented to the ED complaining of a palpitations and was found to be in atrial fibrillation with RVR. 1. Paroxysmal atrial fibrillation with acute RVR, present on admission. Resolved. -Patient presented with palpitation was found to be in atrial fibrillation with RVR. Patient was started on diltiazem gtt and spontaneously converted to sinus rhythm. He was then titrated off of diltiazem gtt and placed back on his normal medication with carvedilol 25 mg twice daily. The patient continues to be in sinus rhythm with controlled rate. Sildenafil has been implicated in causing atrial fibrillation and recommended him discontinue this medication at home unless otherwise cleared by his director of kids. -Troponin x 2 negative. ACS is unlikely. -Patient is currently awaiting insurance approval on [employer]. Pradaxa and Xarelto were ran through the hospital pharmacy and Pradaxa is affordable at $40/month and provided the patient with a prescription. -Patient had echocardiogram in June and no need to repeat at this time. 2. Acute kidney injury on chronic kidney disease stage 3, present on admission. Acute kidney injury resolved. -Likely secondary to poor perfusion from atrial fibrillation with RVR. Of note, he has one kidney after left nephrectomy secondary to renal cell carcinoma. -Baseline creatinine of 1.5-1.6. Initial creatinine 1.9 and has returned to baseline at 1.6. -Continued to avoid nephrotoxic agents and optimize renal perfusion. -Continued to monitor creatinine daily. 3. Hypertension, chronic, present on admission. Stable. -Continued hydrochlorothiazide 25 mg daily and losartan 25 mg daily at bedtime. 4. Hyperlipidemia, chronic, present on admission. Stable. -Fasting lipid panel demonstrated moderate control: Total cholesterol 177, triglyceride 227, LDL 105, and HDL 27. -Continued home lovastatin 20 mg daily at bedtime. -Recommended lifestyle modification including diet and exercise. 5. Diabetes mellitus type 2, insulin using, present on admission. Stable. -Hemoglobin A1c 8.0%. -Continued home regimen of basaglar 40 units daily and humalog 15 both given in the morning. -Continued ACHS blood glucose checks and medium dose correctional scale insulin. -Continued carbohydrate consistent/heart healthy diet. Exam Vital Signs (past 8 hours): - 01/23/19 03:07 01/23/19 07:00 Temperature 97.9 F 97.6 F Pulse Rate 67 67 Respiratory Rate 17 20 Blood Pressure 108/69 111/71 Pulse Oximetry 92 98 Oxygen Delivery Method Room Air Narrative Exam Narrative: General: Middle-aged male standing in room and in no acute distress, well- developed, well-nourished, appropriately interactive. HEENT: Normocephalic, atraumatic. External ears without defect. Pupils equal, round, and reactive to light. Anicteric sclerae, moist conjunctivae, and no lid lag. Oropharynx free of erythema and cobble stoning with moist mucosa. Neck: Supple with full range of motion. No jugular venous distension.No lymphadenopathy or thyromegaly. Cardiovascular: Regular rate and rhythm without murmurs, rubs, or gallops appreciated. Pulmonary: Clear to auscultation bilaterally without crackles, wheezes, or rhonchi. Normal respiratory effort with no use of accessory muscles. Abdomen: Soft, obese, bowel sounds present, nontender, nondistended. No hepatosplenomegaly or masses appreciated. Extremities: No clubbing, cyanosis, or edema. Skin: Normal temperature, turgor, and texture; no rash, ulcers, or subcutaneous nodules appreciated. Neurological: Cranial nerves grossly intact. Normal muscle strength, tone, and bulk. Reflexes, coordination, and sensory function within normal limits. No known gait impairment. Psychiatric: Normal mood and affect. Alert and oriented to person, place, and time. Objective Labs Result Diagrams: 01/23/19 04:43 01/23/19 04:43 Labs: Laboratory Results - last 24 hr 01/22/19 01/22/19 01/22/19 10:34 10:34 10:34 WBC 6.8 RBC 5.20 Hgb 14.8 Hct 43.5 MCV 83.8 MCH 28.5 MCHC 34.0 RDW 14.6 Plt Count 149 L Neut % (Auto) 71.9 Lymph % (Auto) 16.1 L [place] % (Auto) 9.6 Eos % (Auto) 1.5 L Baso % (Auto) 0.9 Neut # (Auto) 4900 Lymph # (Auto) 1100 [place] # (Auto) 700 Eos # (Auto) 100 Baso # (Auto) 100 PT 11.0 INR 1.0 APTT 32 Sodium 139 Potassium 4.2 Chloride 104 Carbon Dioxide 26 BUN 40 H Creatinine 1.90 H Estimated GFR 36.5 L BUN/Creatinine Ratio 21.1 Glucose 222 H Hemoglobin A1c Calcium 9.9 Magnesium Total Bilirubin 0.8 AST 28 ALT 25 Alkaline Phosphatase 64 Total Creatine Kinase 193 H CK-MB (CK-2) 2.45 H CK-MB (CK-2) Rel Index 1.3 L Troponin I < 0.012 Total Protein 7.2 Albumin 4.2 Globulin 3.0 Albumin/Globulin Ratio 1.4 Triglycerides Cholesterol LDL Cholesterol, Calc HDL Cholesterol Lipase 489 H TSH Nasal Screen MRSA (PCR) 01/22/19 01/22/19 01/23/19 14:10 16:25 04:43 WBC 5.6 RBC 4.82 Hgb 13.8 Hct 40.1 L MCV 83.3 MCH 28.6 MCHC 34.4 RDW 14.6 Plt Count 126 L Neut % (Auto) 65.4 Lymph % (Auto) 22.1 L [place] % (Auto) 9.2 Eos % (Auto) 2.4 Baso % (Auto) 0.9 Neut # (Auto) 3700 Lymph # (Auto) 1200 [place] # (Auto) 500 Eos # (Auto) 100 Baso # (Auto) 100 PT INR APTT Sodium Potassium Chloride Carbon Dioxide BUN Creatinine Estimated GFR BUN/Creatinine Ratio Glucose Hemoglobin A1c Calcium Magnesium Total Bilirubin AST ALT Alkaline Phosphatase Total Creatine Kinase CK-MB (CK-2) CK-MB (CK-2) Rel Index Troponin I < 0.012 Total Protein Albumin Globulin Albumin/Globulin Ratio Triglycerides Cholesterol LDL Cholesterol, Calc HDL Cholesterol Lipase TSH Nasal Screen MRSA (PCR) Negative for mrsa 01/23/19 01/23/19 01/23/19 04:43 04:43 04:43 WBC RBC Hgb Hct MCV MCH MCHC RDW Plt Count Neut % (Auto) Lymph % (Auto) Bert[place] % (Auto) Eos % (Auto) Baso % (Auto) Neut # (Auto) Lymph # (Auto) Bertie # (Auto) Eos # (Auto) Baso # (Auto) PT INR APTT Sodium 137 Potassium 3.7 Chloride 105 Carbon Dioxide 25 BUN 37 H Creatinine 1.60 H Estimated GFR 44.5 L BUN/Creatinine Ratio 23.1 H Glucose 171 H Hemoglobin A1c 8.0 H Calcium 9.0 Magnesium 2.0 Total Bilirubin AST ALT Alkaline Phosphatase Total Creatine Kinase CK-MB (CK-2) CK-MB (CK-2) Rel Index Troponin I Total Protein Albumin Globulin Albumin/Globulin Ratio Triglycerides 227 H Cholesterol 177 LDL Cholesterol, Calc 105 H HDL Cholesterol 27 L Lipase TSH 0.85 Nasal Screen MRSA (PCR) Discharge Plan Discharge Plan Patient Disposition: Home Discharge comment: Your being discharged home. You were hospitalized for atrial fibrillation with rapid ventricular rate thought to be related to your Viagra use. Please do not use Viagra until cleared by your director of kids Dr. Bee. You may monitor your pulse with a pulse oximeter that you may buy at your local pharmacy. You have been prescribed Pradaxa 150 mg twice daily which will be $40 a month and can be picked up at [facility]. Please follow-up with your primary care physician, CARIDAD Serrano, in the next 1 week regarding your hospitalizat ion. Discharge Med Rec/Prescriptions Prescriptions: New Pradaxa 150 mg capsule 150 mg PO BID Qty: 60 RF: 0 Continued acetaminophen 500 MG tablet 500 mg PO PRN PRN (Reason: pain) Qty: 0 RF: 0 omeprazole 20 MG capsule,delayed release(DR/EC) 20 mg PO DAILY PRN (Reason: Acid Reflux) Qty: 0 RF: 0 glipizide 5 mg Tablet Extended Release 24hr 5 mg PO BID RF: 0 aspirin 81 mg Tablet,Delayed Release (Dr/Ec) 162 mg PO DAILY RF: 0 losartan 25 mg Tablet 25 mg PO QPM RF: 0 hydrochlorothiazide 25 mg Tablet 25 mg PO DAILY RF: 0 lovastatin 20 mg Tablet 20 mg PO QPM RF: 0 insulin lispro [Humalog KwikPen Insulin] 100 unit/mL Insulin Pen 15 unit subcut DAILY RF: 0 Basaglar KwikPen U-100 Insulin 100 unit/mL (3 mL) Insulin Pen 40 unit SUBCUT DAILY RF: 0 carvedilol 25 mg Tablet 25 mg PO BID RF: 0 Discontinued sildenafil [Viagra] 50 mg Tablet 50 mg PO DAILY PRN (Reason: Erectile Dysfunction) RF: 0 Follow up/Referrals: Paige Serrano PA-C [Primary Care Provider] - 3-5 Days Provider Discharge Instructions Diet: Carb-consistent/Diabetic, Low-fat, Low-sodium and Low-cholesterol Activity: Activity as tolerated Visit Report/Discharge Packet Instructions: DI for Atrial Fibrillation, Dabigatran, Carvedilol Discharge Data Primary Care Provider: Paige Serrano Attending Provider: Attila Clay Admit Date/Time: 01/22/19 12:39
--- NOTE | 2019-01-23 14:06 | CM.IDA ---
Initial DCP Assessment Note: Pt is a 58 yo male, resident of [place]. Pt under observation for afib w/ RVR. PCP: Paige Serrano Payer: Elliott Reviewed chart. Pt discussed in multidisciplinary rounds. Pt's afib w/RVR has resolved and he has been cleared to safely return home w/ spouse w/close outpt f/u. Pt is A+Ox3, indp and eager to return home today, no barriers to safe return home w/spouse to assist as needed. DYLAN Singleton
== END 2019-01-23 11:45 | disposition home or self-care (01) ==
LOC: ED 12:04 → AC 13:09 → ICU 01-23 08:05 → AC 01-23 12:47
PROVIDERS: Admitting Provider Internal Medicine; Emergency Provider Emergency Medicine; PCP Physician Assistant Medical; Visit Provider Internal Medicine
DX: I48.0 Paroxysmal atrial fibrillation (principal); R00.2 Palpitations; N18.3 Chronic kidney disease, stage 3 (moderate); I10 Essential (primary) hypertension; E11.9 Type 2 diabetes mellitus without complications; Z23 Encounter for immunization; Z79.84 Long term (current) use of oral hypoglycemic drugs; E78.5 Hyperlipidemia, unspecified
CPT/HCPCS: 36415; 71045; 80048; 80053; 80061; 82550; 82553; 82962; 83036; 83690; 83735; 84443; 84484; 85025; 85610; 85730; 87797; 90471; 90656; 93005; 96365; 96366; 96372; 96375; 99283; 99285; G0378; Q2038

== ENCOUNTER 2020-09-10 12:29 | Emergency (ER) | payer OTHER, SELFPAY ==
[2020-09-10] VITALS (11 sets, daily range): BP systolic 107–118; BP diastolic 53–70; PULSE 76–132; RESP 11–22; TEMP 36.6; O2SAT 94–96; BMI 37.0; BMI 37.8
--- NOTE | 2020-09-10 13:00 | DI.RAD.S_ITS ---
PROCEDURE: XR CHEST 1V INDICATIONS: chest pain TECHNIQUE: One view of the chest was acquired. COMPARISON: [facility], , CHEST 1 VIEW, 08/07/2016, 13:03. [facility], , XR CHEST 1V, 01/22/2019, 10:23. FINDINGS: Surgical changes and devices: None. Lungs and pleura: On this semiupright portable chest examination, no large pneumothorax can be seen. There is blunting of the left costophrenic angle. No focal infiltrates are seen. Minimal interstitial prominence is seen, which is improved compared to 2018. Mediastinum: Mediastinal contours appear normal. Heart size is normal. Bones and chest wall: No suspicious bony lesions. Age-appropriate bony degenerative changes are seen. Overlying soft tissues appear unremarkable. IMPRESSION: Minimal interstitial prominence and potential small left-sided pleural effusion. If clinically appropriate, a short-term followup chest series (with PA and lateral views) performed in deep inspiration is suggested for further evaluation. Dictated by: Juan Perez M.D. on 09/10/2020 at 13:06 Approved by: Juan Perez M.D. on 09/10/2020 at 13:07
[2020-09-10 13:10] LABS: INR 1.2 (0.9-1.3); Prothrombin Time 13.6 SECONDS (10.1-12.7)
[2020-09-10 13:13] LABS: PTT Partial Thromboplastin Tim 38 SECONDS (26.4-36.2)
[2020-09-10 13:15] LABS: Alanine Aminotransferase 32 IU/L (<50); Albumin 4.1 g/dL (3.5-5.0); Albumin Globulin Ratio 1.2 (1.0-2.8); Alkaline Phosphatase 94 U/L (38-126); Aspartate Aminotransferase 30 IU/L (17-59); BUN Creatinine Ratio 21.7 (6-22); Bilirubin Total 1.2 mg/dL (0.2-1.3); Blood Urea Nitrogen 34 mg/dL (9-20); Calcium 9.8 mg/dL (8.4-10.2); Carbon Dioxide 27 mmol/L (22-32); Chloride 99 mmol/L (98-107); Creatine Kinase 167 U/L (55-170); Estimated Glomerular Filt Rate 45.1 mL/min (>60); Globulin 3.3 g/dL (1.7-4.1); Glucose 333 mg/dL (80-110); HEMOLYSIS < 15 (0-50); Lipase 258 U/L (23-300); Sodium 134 mmol/L (137-145); Total Protein 7.4 g/dL (6.3-8.2)
[2020-09-10 13:26] LABS: Troponin I < 0.012 ng/mL (0.01-0.034)
[2020-09-10 13:30] LABS: CKMB % Relative Index 1.3 % (1.5-5.0); Creatine Kinase MB 2.12 ng/mL (<2.37)
[2020-09-10 13:33] LABS: COVID19 -Nasal RAPID Negative (Negative)
[2020-09-10 13:54] LABS: Add Manual Diff / Slide Review NO; Basophils Absolute Auto 100 /uL (0-100); Basophils Percent Auto 1.1 % (0-2); Eosinophils Absolute Auto 100 /uL (0-450); Eosinophils Percent Auto 2.2 % (2-4); Hematocrit 42.8 % (41-53); Hemoglobin 14.7 g/dL (13.5-17.5); Lymphocytes Absolute Auto 1100 /uL (1100-4500); Lymphocytes Percent Auto 16.8 % (25-40); Mean Corpuscular HGB Conc 34.4 % (30-36); Mean Corpuscular Hemoglobin 28.7 PG (26-34); Mean Corpuscular Volume 83.5 fL (80-100); Monocytes Absolute Auto 600 /uL (0-900); Neutrophils Absolute Auto 4700 /uL (1500-7000); Neutrophils Percent Auto 70.9 % (50-75); Platelet Count 146 X10^3/uL (150-400); Red Blood Cell Count 5.12 X10^6/uL (4.5-5.9); Red Cell Distribution Width 14.1 % (11.6-14.8); White Blood Cell Count 6.7 X10^3/uL (4.5-11.0)
--- NOTE | 2020-09-10 13:57 | ED_ITS ---
HPI - Arrhythmia/Palpitations General Chief Complaint: Arrhythmia/Palpitations Stated Complaint: Afib Time Seen by Provider: 09/10/20 13:06 Source: patient and family Mode of arrival: Ambulatory Limitations: no limitations History of Present Illness HPI narrative: Patient here with . Complains of palpitations starting 5:00 a.m. yesterday. Patient is on Eliquis for atrial fibrillation. Is on carvedilol. No medication changes in the past 6 months. No chest pain no dyspnea no dizziness. No numbness tingling or weakness. No slurred speech. 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 Two years ago patient seen here admitted for atrial fibrillation on Cardizem drip. Did not have cardioversion. Does not want any cardioversion MD complaint: skipped beats Related Data Home Medications Medication Instructions Recorded Confirmed acetaminophen 500 mg PO PRN PRN #0 tab 12/01/15 01/22/19 omeprazole 20 mg PO DAILY PRN #0 12/01/15 01/22/19 Basaglar KwikPen U-100 Insulin 40 unit SUBCUT DAILY 01/22/19 01/22/19 aspirin 162 mg PO DAILY 01/22/19 01/22/19 carvedilol 25 mg PO BID 01/22/19 09/10/20 glipizide 5 mg PO BID 01/22/19 01/22/19 hydrochlorothiazide 25 mg PO DAILY 01/22/19 01/22/19 insulin lispro [Humalog KwikPen 15 unit SUBCUT DAILY 01/22/19 01/22/19 Insulin] losartan 25 mg PO QPM 01/22/19 01/22/19 lovastatin 20 mg PO QPM 01/22/19 01/22/19 apixaban [Eliquis] 5 mg PO DAILY 09/10/20 09/10/20 Previous Rx's Medication Instructions Recorded diltiazem HCl [Cardizem CD] 120 mg PO DAILY #14 cap 09/10/20 Allergies Allergy/AdvReac Type Severity Reaction Status Date / Time lisinopril Allergy Cough Verified 09/10/20 12:50 morphine AdvReac Vomiting Verified 09/10/20 12:50 Review of Systems Review of Systems Narrative: GENERAL: Denies chills, fatigue, malaise, fever, sweats. HEENT: Denies sinus pain, ear pain, sore throat RESPIRATORY: Denies dyspnea, cough CARDIOVASCULAR: Denies chest pain, complains palpitations GASTROINTESTINAL: Denies nausea, vomiting, abdominal pain : Denies dysuria, frequency, hematuria MUSCULOSKELETAL: denies muscle or bony pain SKIN: Denies rash, skin lesions NEUROLOGIC: Denies weakness, numbness ROS Unobtainable: All systems reviewed & are unremarkable except as noted in HPI and below Patient History Medical History Atrial fibrillation Diabetes HTN (hypertension) Renal cell cancer Surgical History History of left nephrectomy No pertinent past surgical history Social History household members: spouse Smoking Status: Never smoker Smoking Status: Never smoker alcohol intake frequency: a few times a month Substance Use Type: does not use Exam Narrative Exam Narrative: GENERAL: in no distress, not toxic not dyspneic HEAD: Normocephalic. EYES: Pupils equal round No scleral icterus. No injection no discharge ENT: Mucous membranes moist. NECK: Trachea midline. CARDIOVASCULAR: Irregular regular rate and rhythm without murmurs RESPIRATORY: Clear to auscultation. Breath sounds equal bilaterally. No wheezes, rales, or rhonchi. GASTROINTESTINAL: Abdomen soft, non-tender EXTREMITIES: No gross deformities. BACK: No flank tenderness. NEURO: AOx4. SKIN: Warm and dry PSYCH: Not anxious, is cooperative Initial Vital Signs Initial Vital Signs: Vital Signs Temperature 97.9 F 09/10/20 12:35 Pulse Rate 127 H 09/10/20 12:35 Respiratory Rate 16 09/10/20 12:35 Blood Pressure 118/70 09/10/20 12:35 Pulse Oximetry 95 09/10/20 12:35 Course Course Course Narrative: Feels much better after Cardizem Orders Ordered: Discontinued Medications Diltiazem HCl (Diltiazem 5 Mg/Ml Sdv) 15 mg IV NOW ONE Stop: 09/10/20 13:55 Last Admin: 09/10/20 14:20 Dose: 15 mg Documented by: GER Reevaluation(s) Reevaluation #1: No new complaints. Awaiting for Cardizem Time: 13:58 Reevaluation #2: Feels much better after Cardizem 15 mg dose. Heart rate 91. Atrial fibrillation on monitor. No complaints. Time: 14:42 Reevaluation #3: Heart rate 89 blood pressure 118/59 Time: 15:20 Consultations Consultation #1: Spoke with Dr. Lobo, night patrol inspector on-call for patient's night patrol inspector. Patient can be discharged home. Patient is on Eliquis. No need for cardioversion. Rate is controlled with Cardizem. Send patient home on Cardizem 120 mg daily. Patient is see his provider/night patrol inspector next week in the office. Patient rate controlled AFib a flutter. Hemodynamically stable. Time: 14:53 Vital Signs Vital signs: Vital Signs - 8 hr 09/10/20 12:35 09/10/20 12:57 09/10/20 13:00 Temperature 97.9 F Pulse Rate 127 H 121 H 122 H Respiratory Rate 16 19 11 L Blood Pressure 118/70 Pulse Oximetry 95 95 94 09/10/20 13:30 09/10/20 13:31 09/10/20 14:00 Temperature Pulse Rate 132 H 128 H 120 H Respiratory Rate 22 Blood Pressure 107/63 109/62 Pulse Oximetry 96 95 94 09/10/20 14:20 09/10/20 14:24 09/10/20 14:27 Temperature Pulse Rate 76 116 H 96 H Respiratory Rate 20 22 Blood Pressure 110/53 L 112/63 118/59 L Pulse Oximetry 95 95 09/10/20 14:30 09/10/20 15:00 Temperature Pulse Rate 90 88 Respiratory Rate 17 20 Blood Pressure 118/59 L Pulse Oximetry 94 96 MDM - Arrhythmia/Palpitations Differential Diagnosis Differential diagnosis: Likely palpitations and artial fibrillation Medical Records Attestation: I reviewed the patient's medical records. Lab Data Attestation: I reviewed the patient's lab results. Result diagrams: 09/10/20 12:45 09/10/20 12:45 Labs: Lab Results 09/10/20 09/10/20 09/10/20 Range/Units 12:45 12:45 12:45 WBC 6.7 (4.5-11.0) X10^3/uL RBC 5.12 (4.5-5.9) X10^6/uL Hgb 14.7 (13.5-17.5) g/dL Hct 42.8 (41-53) % MCV 83.5 (80-100) fL MCH 28.7 (26-34) PG MCHC 34.4 (30-36) % RDW 14.1 (11.6-14.8) % Plt Count 146 L (150-400) X10^3/uL Neut % (Auto) 70.9 (50-75) % Lymph % (Auto) 16.8 L (25-40) % [place] % (Auto) 9.0 (3-14) % Eos % (Auto) 2.2 (2-4) % Baso % (Auto) 1.1 (0-2) % Neut # (Auto) 4700 (3548-2244) /uL Lymph # (Auto) 1100 (0077-4992) /uL [place] # (Auto) 600 (0-900) /uL Eos # (Auto) 100 (0-450) /uL Baso # (Auto) 100 (0-100) /uL PT 13.6 H (10.1-12.7) SECONDS INR 1.2 (0.9-1.3) APTT 38 H D (26.4-36.2) SECONDS Sodium 134 L (137-145) mmol/L Potassium 4.0 (3.4-5.1) mmol/L Chloride 99 (98-107) mmol/L Carbon Dioxide 27 (22-32) mmol/L BUN 34 H (9-20) mg/dL Creatinine 1.57 H (0.66-1.25) mg/dL Estimated GFR 45.1 L (>60) mL/min BUN/Creatinine Ratio 21.7 (6-22) Glucose 333 H (80-110) mg/dL Calcium 9.8 (8.4-10.2) mg/dL Total Bilirubin 1.2 (0.2-1.3) mg/dL AST 30 (17-59) IU/L ALT 32 (<50) IU/L Alkaline Phosphatase 94 (38-126) U/L Total Creatine Kinase 167 (55-170) U/L CK-MB (CK-2) 2.12 (<2.37) ng/mL CK-MB (CK-2) Rel Index 1.3 L (1.5-5.0) % Troponin I < 0.012 (0.01-0.034) ng/mL Total Protein 7.4 (6.3-8.2) g/dL Albumin 4.1 (3.5-5.0) g/dL Globulin 3.3 (1.7-4.1) g/dL Albumin/Globulin Ratio 1.2 (1.0-2.8) Lipase 258 (23-300) U/L SARS-CoV-2 (PCR) (Negative) 09/10/20 Range/Units 12:47 WBC (4.5-11.0) X10^3/uL RBC (4.5-5.9) X10^6/uL Hgb (13.5-17.5) g/dL Hct (41-53) % MCV (80-100) fL MCH (26-34) PG MCHC (30-36) % RDW (11.6-14.8) % Plt Count (150-400) X10^3/uL Neut % (Auto) (50-75) % Lymph % (Auto) (25-40) % [place] % (Auto) (3-14) % Eos % (Auto) (2-4) % Baso % (Auto) (0-2) % Neut # (Auto) (4722-2985) /uL Lymph # (Auto) (6188-1366) /uL [place] # (Auto) (0-900) /uL Eos # (Auto) (0-450) /uL Baso # (Auto) (0-100) /uL PT (10.1-12.7) SECONDS INR (0.9-1.3) APTT (26.4-36.2) SECONDS Sodium (137-145) mmol/L Potassium (3.4-5.1) mmol/L Chloride (98-107) mmol/L Carbon Dioxide (22-32) mmol/L BUN (9-20) mg/dL Creatinine (0.66-1.25) mg/dL Estimated GFR (>60) mL/min BUN/Creatinine Ratio (6-22) Glucose (80-110) mg/dL Calcium (8.4-10.2) mg/dL Total Bilirubin (0.2-1.3) mg/dL AST (17-59) IU/L ALT (<50) IU/L Alkaline Phosphatase (38-126) U/L Total Creatine Kinase (55-170) U/L CK-MB (CK-2) (<2.37) ng/mL CK-MB (CK-2) Rel Index (1.5-5.0) % Troponin I (0.01-0.034) ng/mL Total Protein (6.3-8.2) g/dL Albumin (3.5-5.0) g/dL Globulin (1.7-4.1) g/dL Albumin/Globulin Ratio (1.0-2.8) Lipase (23-300) U/L SARS-CoV-2 (PCR) Negative (Negative) Imaging Data Chest x-ray: Radiologist's Impresson: [place] [id number] [place] [id number] ReportSigned Patient: Josh Fung DMR#: [id number]: 1960Acct:[id number]/Sex: 60 / MDate of Service: 09/10/20Loc: EDAccession Number: [id number] Procedure: XR chest 1V Ordering Provider: Mahin Valverde MD PROCEDURE: XR CHEST 1V INDICATIONS: chest pain TECHNIQUE: One view of the chest was acquired. COMPARISON: [facility], , CHEST 1 VIEW, 08/07/2016, 13:03. [facility], , XR CHEST 1V, 01/22/2019, 10:23. FINDINGS: Surgical changes and devices: None. Lungs and pleura: On this semiupright portable chest examination, no large pneumothorax can be seen. There is blunting of the left costophrenic angle. No focal infiltrates are seen. Minimal interstitial prominence is seen, which is improved compared to 2018. Mediastinum: Mediastinal contours appear normal. Heart size is normal. Bones and chest wall: No suspicious bony lesions. Age-appropriate bony degenerative changes are seen. Overlying soft tissues appear unremarkable. IMPRESSION: Minimal interstitial prominence and potential small left-sided pleural effusion. If clinically appropriate, a short-term followup chest series (with PA and lateral views) performed in deep inspiration is suggested for further evaluation. Dictated by: Juan Perez M.D. on 09/10/2020 at 13:06 Approved by: Juan Perez M.D. on 09/10/2020 at 13:07 ECG Data Attestation: I personally reviewed and interpreted this ECG as follows: Interpretation: Atrial fibrillation. Rate 112. No ST elevation or depression MDM Narrative Medical decision making narrative: Appropriate for discharge home. Reviewed with night patrol inspector. Hemodynamically stable. Exam reassuring. Results reassuring. Patient and agree with treatment plan and follow-up with me dication changes. Discharge Plan Departure Patient Disposition: Home Clinical Impression: Paroxysmal A-fib Instructions: DI for Atrial Fibrillation Activity Restrictions/Additional Instructions: Call your cardiology office on Saturday for office recheck next week. Continue home medications. Continue new medication tomorrow, it has been sent to [facility] in [place]. Return if worse if any questions or concerns Prescriptions: New diltiazem HCl [Cardizem CD] 120 mg capsule,extended release 24hr 120 mg PO DAILY Qty: 14 RF: 0 No Action acetaminophen 500 MG tablet 500 mg PO PRN PRN (Reason: pain) Qty: 0 RF: 0 omeprazole 20 MG capsule,delayed release(DR/EC) 20 mg PO DAILY PRN (Reason: Acid Reflux) Qty: 0 RF: 0 glipizide 5 mg Tablet Extended Release 24hr 5 mg PO BID RF: 0 aspirin 81 mg Tablet,Delayed Release (Dr/Ec) 162 mg PO DAILY RF: 0 losartan 25 mg Tablet 25 mg PO QPM RF: 0 hydrochlorothiazide 25 mg Tablet 25 mg PO DAILY RF: 0 lovastatin 20 mg Tablet 20 mg PO QPM RF: 0 insulin lispro [Humalog KwikPen Insulin] 100 unit/mL Insulin Pen 15 unit subcut DAILY RF: 0 Basaglar KwikPen U-100 Insulin 100 unit/mL (3 mL) Insulin Pen 40 unit SUBCUT DAILY RF: 0 carvedilol 25 mg Tablet 25 mg PO BID RF: 0 Eliquis 5 mg tablet 5 mg PO DAILY RF: 0 Referrals: Paige Serrano PA-C [Primary Care Provider] -
[2020-09-10] MEDS: dilTIAZem 5 MG/ML SDV 15 MG IV (14:20)
== END 2020-09-10 15:27 | disposition home or self-care (01) ==
PROVIDERS: Emergency Provider Emergency Medicine; PCP Physician Assistant Medical
DX: I48.0 Paroxysmal atrial fibrillation (principal); Z79.01 Long term (current) use of anticoagulants; R07.9 Chest pain, unspecified; Z20.822 Contact with and (suspected) exposure to COVID-19
CPT/HCPCS: 36415; 71045; 80053; 82550; 82553; 83690; 84484; 85025; 85610; 85730; 87635; 93005; 96374; 99284; C9803

== ENCOUNTER 2022-08-16 13:07 | Emergency (ER) | payer OTHER, SELFPAY ==
[2020-09-10 12:29] VITALS: BMI 37.0
[2022-08-16 13:18] VITALS: BP 163/93; PULSE 63; RESP 18; TEMP 36.3; O2SAT 98; BMI 35.6
--- NOTE | 2022-08-16 13:25 | DI.RAD.S_ITS ---
PROCEDURE: XR TOE LT MIN 2V INDICATIONS: toe injury TECHNIQUE: 3 views of the 1st toe(s) acquired. COMPARISON: None. FINDINGS: Bones: No fractures or dislocations. No suspicious bony lesions. Soft tissues: No suspicious soft tissue densities. IMPRESSION: No acute osseous abnormality. Dictated by: Hever Saunders M.D. on 08/16/2022 at 13:58 Approved by: Hever Saunders M.D. on 08/16/2022 at 13:59
--- NOTE | 2022-08-16 14:57 | ED.LOWEXIN ---
HPI - Extremity Injury (Lower) <Matthew Borges PA-C - Last Filed: 08/16/22 16:24> General Chief Complaint: Extremity Injury, Lower Stated Complaint: smashed LT big toe at work Time Seen by Provider: 08/16/22 14:48 Source: patient Mode of arrival: Ambulatory History of Present Illness HPI Narrative: This is a 61-year-old male presents to the emergency department due to left great toe pain. Patient was moving a heavy cabinet when he dropped it on his left great toe. He states that his mildly bleeding is concerned as he isn't diabetic and is concerned about a possible infection. States he is going on a cruise soon. Reports some mild numbness to the medial aspect of the great toe. Range of motion decreased secondary to pain. Related Data Home Medications Medication Instructions Recorded Confirmed acetaminophen 500 mg tablet 500 mg PO PRN PRN pain #0 tabs 12/01/15 01/22/19 omeprazole 20 mg capsule,delayed 20 mg PO DAILY PRN Acid Reflux ##0 12/01/15 01/22/19 release aspirin 81 mg tablet,delayed 162 mg PO DAILY 01/22/19 01/22/19 release carvedilol 25 mg tablet 25 mg PO BID 01/22/19 09/10/20 glipizide 5 mg tablet, extended 5 mg PO BID 01/22/19 01/22/19 release 24 hr hydrochlorothiazide 25 mg tablet 25 mg PO DAILY 01/22/19 01/22/19 insulin glargine 100 unit/mL (3 40 unit SUBCUT DAILY 01/22/19 01/22/19 mL) subcutaneous pen (Basaglar KwikPen U-100 Insulin) insulin lispro 100 unit/mL 15 unit SUBCUT DAILY 01/22/19 01/22/19 subcutaneous pen (Humalog KwikPen (U-100) Insulin) losartan 25 mg tablet 25 mg PO QPM 01/22/19 01/22/19 lovastatin 20 mg tablet 20 mg PO QPM 01/22/19 01/22/19 apixaban 5 mg tablet (Eliquis) 5 mg PO DAILY 09/10/20 09/10/20 Previous Rx's Medication Instructions Recorded diltiazem HCl 120 mg 120 mg PO DAILY #14 caps 09/10/20 capsule,extended release 24 hr (Cardizem CD) cephalexin 500 mg capsule 500 mg PO QID 7 days #28 caps 08/16/22 Allergies Allergy/AdvReac Type Severity Reaction Status Date / Time lisinopril Allergy Cough Verified 09/10/20 12:50 morphine AdvReac Vomiting Verified 09/10/20 12:50 Review of Systems <Matthew Borges PA-C - Last Filed: 08/16/22 16:24> Review of Systems Narrative: GENERAL: Denies chills, fatigue, malaise, fever, sweats. HEENT: Denies sinus pain, ear pain, sore throat, difficulty swallowing, dizziness. RESPIRATORY: Denies dyspnea, cough, wheezing, hemoptysis, sputum. CARDIOVASCULAR: Denies chest pain, palpitations, orthopnea, edema, GASTROINTESTINAL: Denies nausea, vomiting, abdominal pain, diarrhea, constipation, melena. : Denies dysuria, frequency, incontinence, hematuria, urinary retention. MUSCULOSKELETAL: Left great toe pain, denies weakness, joint pain, or bony pain SKIN: Denies rash, skin lesions, or other NEUROLOGIC: Denies weakness, headache, numbness, change in speech, confusion, seizures, incoordination. PSYCHIATRIC: No concerning psychosocial issues. 12 point review of systems is negative except for those stated above Patient History <Matthew Borges PA-C - Last Filed: 08/16/22 16:24> Medical History Atrial fibrillation Diabetes HTN (hypertension) Renal cell cancer Surgical History History of left nephrectomy No pertinent past surgical history Social History household members: spouse Smoking Status: Never smoker Smoking Status: Never smoker alcohol intake frequency: a few times a month Substance Use Type: does not use Exam <Matthew Borges PA-C - Last Filed: 08/16/22 16:24> Narrative Exam Narrative: GENERAL: Well-developed patient, in mild distress. HEAD: Atraumatic. Normocephalic. EYES: Pupils equal round and reactive. Extraocular motions intact. No scleral icterus. No injection or drainage. ENT: Nose without bleeding, purulent drainage. Throat without erythema, tonsillar hypertrophy or exudate. Airway patent. NECK: Trachea midline. Non tender CARDIOVASCULAR: Regular rate and rhythm without murmurs, gallops, or rubs. RESPIRATORY: Clear to auscultation. Breath sounds equal bilaterally. No wheezes, rales, or rhonchi. GASTROINTESTINAL: Abdomen soft, non-tender, nondistended. EXTREMITIES: Diffuse tenderness to palpation to the left great toe. Possible subungual hematoma. No active bleeding. Range of motion decreased secondary to pain. BACK: Nontender without deformity or crepitance. No flank tenderness. NEURO: AOx3. SKIN: No rash or erythema of visible areas Initial Vital Signs Initial Vital Signs: Vital Signs Temperature 97.4 F L 08/16/22 13:18 Pulse Rate 63 08/16/22 13:18 Respiratory Rate 18 08/16/22 13:18 Blood Pressure 163/93 H 08/16/22 13:18 Pulse Oximetry 98 08/16/22 13:18 Oxygen Delivery Method Room Air 08/16/22 13:18 <DO Jennifer Pozo Last Filed: 08/16/22 17:56> Initial Vital Signs Initial Vital Signs: Vital Signs Temperature 97.4 F L 08/16/22 13:18 Pulse Rate 63 08/16/22 13:18 Respiratory Rate 18 08/16/22 13:18 Blood Pressure 163/93 H 08/16/22 13:18 Pulse Oximetry 98 08/16/22 13:18 Oxygen Delivery Method Room Air 08/16/22 13:18 Course <Matthew Borges PA-C - Last Filed: 08/16/22 16:24> Orders Ordered: ED Orders 08/16/22 13:25 XR toe LT min 2V Stat Vital Signs Vital signs: Vital Signs - 8 hr 08/16/22 13:18 08/16/22 15:39 Temperature 97.4 F L Pulse Rate 63 75 Respiratory Rate 18 18 Blood Pressure 163/93 H 155/70 H Pulse Oximetry 98 99 Oxygen Delivery Method Room Air <DO Jennifer Pozo Last Filed: 08/16/22 17:56> Orders Ordered: ED Orders 08/16/22 13:25 XR toe LT min 2V Stat Vital Signs Vital signs: Vital Signs - 8 hr 08/16/22 13:18 08/16/22 15:39 Temperature 97.4 F L Pulse Rate 63 75 Respiratory Rate 18 18 Blood Pressure 163/93 H 155/70 H Pulse Oximetry 98 99 Oxygen Delivery Method Room Air MDM - Extremity Injury (Lower) <Matthew Borges PA-C - Last Filed: 08/16/22 16:24> Imaging Data Extremity x-ray #1: Radiologist's Impression: [address] [address] XRay Report Signed Patient: Josh Fung MR#: [id number] : 1960 Acct:[id number] Age/Sex: 61 / M Date of Service: 08/16/22 Loc: ED Accession Number: [id number] ?? Procedure: XR toe LT min 2V Ordering Provider: Salvador Orr D.O. PROCEDURE:? XR TOE LT MIN 2V ? INDICATIONS:? toe injury ? TECHNIQUE:? 3 views of the 1st toe(s) acquired.? ? COMPARISON:? None. ? FINDINGS:? ? Bones:? No fractures or dislocations.? No suspicious bony lesions.? ? Soft tissues:? No suspicious soft tissue densities.? ? IMPRESSION:? No acute osseous abnormality. ? ? Dictated by: Hever Saunders M.D. on 08/16/2022 at 13:58 ? ? Approved by: Hever Saunders M.D. on 08/16/2022 at 13:59 ? MDM Narrative Medical decision making narrative: MDM * differential diagnosis includes but not limited to left great toe fracture, subungual hematoma, nerve injury * Prior records reviewed: Patient has not been here for similar complaints in the past. * My lab interpretation: None retained * My imgaing interpretation: X-ray showed no signs of fracture. * Clinical Decision Rules/Scores evaluated: None * Independent discussions with: None ED Course: This is a 61-year-old male presents to the emergency department due to left great toe pain. X-ray showed no evidence of any fractures. Recommended conservative therapies. Patient was very concerned that he would develop an infection as he is going increase in his diabetic. There does appear to be a subungual hematoma and antibiotics will be per fact that the prescribed to avoid any kind of infection as patient was very concerned. Shared Decision Making: Discussed plan with patient who is comfortable with the plan. Social Considerations: None Disposition: Discharged home Discharge Plan Departure Patient Disposition: Home Clinical Impression: Great toe pain Activity Restrictions/Additional Instructions: Thank you for coming to the [facility] Emergency Department today. As we discussed your x-ray shows no evidence of any fractures. There does appear to be some bleeding of the nail bed. This may cause the nail to fall off. Please do your best to keep the wound wrapped and protected. You may take the antibiotics to avoid any kind of infection. I sent the medications to [facility] in [place]. I hope you feel better soon. Prescriptions: New cephalexin 500 mg capsule 500 mg PO QID 7 Days Qty: 28 0RF No Action acetaminophen 500 MG tablet 500 mg PO PRN PRN (Reason: pain) Qty: 0 omeprazole 20 MG capsule,delayed release(DR/EC) 20 mg PO DAILY PRN (Reason: Acid Reflux) Qty: 0 glipizide 5 mg Tablet Extended Release 24hr 5 mg PO BID aspirin 81 mg Tablet,Delayed Release (Dr/Ec) 162 mg PO DAILY losartan 25 mg Tablet 25 mg PO QPM hydrochlorothiazide 25 mg Tablet 25 mg PO DAILY lovastatin 20 mg Tablet 20 mg PO QPM insulin lispro [Humalog KwikPen Insulin] 100 unit/mL Insulin Pen 15 unit subcut DAILY Basaglar KwikPen U-100 Insulin 100 unit/mL (3 mL) Insulin Pen 40 unit SUBCUT DAILY carvedilol 25 mg Tablet 25 mg PO BID Eliquis 5 mg tablet 5 mg PO DAILY diltiazem HCl [Cardizem CD] 120 mg capsule,extended release 24hr 120 mg PO DAILY Qty: 14 0RF Referrals: Paige Serrano PA-C [Primary Care Provider] - Stand Alone Forms: Patient Portal/API <Salvador Orr DO - Last Filed: 08/16/22 17:56> Cosign ED Attending Cosjackature Attestation: Dr Orr Co-Sign Statement: I was available for consultation during this patient's emergency department visit. This chart is signed by myself for administrative purposes only. I did not have direct contact with this patient during this visit. They were seen independently by the APC.
[2022-08-16 15:39] VITALS: BP 155/70; PULSE 75; RESP 18; O2SAT 99
--- NOTE | 2022-08-16 15:42 | PC.NURSE ---
left great toe gauze and coban to site
== END 2022-08-16 15:49 | disposition home or self-care (01) ==
PROVIDERS: Emergency Provider Physician Assistant Medical; PCP Physician Assistant Medical
DX: M79.675 Pain in left toe(s) (principal); W22.8XXA Striking against or struck by other objects, initial encounter; Y99.0 Civilian activity done for income or pay
CPT/HCPCS: 73660; 99281; 99283; 99284

== ENCOUNTER 2023-05-15 13:02 | Emergency (ER) | payer OTHER, SELFPAY ==
[2020-09-10 12:29] VITALS: BMI 37.0
[2023-05-15] VITALS (13 sets, daily range): BP systolic 108–149; BP diastolic 70–95; PULSE 84–124; RESP 14–23; TEMP 36.3; O2SAT 94–95; BMI 36.8
--- NOTE | 2023-05-15 13:24 | DI.RAD.S_ITS ---
PROCEDURE: XR CHEST 1V INDICATIONS: chest pain TECHNIQUE: One view of the chest was acquired. COMPARISON: [facility], CR, XR CHEST 1V, 09/10/2020, 13:27. FINDINGS: Surgical changes and devices: None. Lungs and pleura: Lungs are clear. No pleural effusions or pneumothorax. Mediastinum: Mediastinal contours appear normal. Heart size is normal. Bones and chest wall: No suspicious bony lesions. Overlying soft tissues appear unremarkable. IMPRESSION: No acute cardiopulmonary abnormality is seen. Dictated by: Katerin Davis M.D. on 05/15/2023 at 13:41 Approved by: Katerin Davis M.D. on 05/15/2023 at 13:41
[2023-05-15 13:42] LABS: Add Manual Diff / Slide Review NO; Basophils Absolute Auto 100 /uL (0-100); Basophils Percent Auto 1.5 % (0-2); Eosinophils Absolute Auto 200 /uL (0-450); Eosinophils Percent Auto 2.9 % (2-4); Hematocrit 43.4 % (41-53); Hemoglobin 15.1 g/dL (13.5-17.5); Lymphocytes Absolute Auto 1400 /uL (1100-4500); Lymphocytes Percent Auto 21.9 % (25-40); Mean Corpuscular HGB Conc 34.8 % (30-36); Mean Corpuscular Hemoglobin 29.2 PG (26-34); Monocytes Absolute Auto 600 /uL (0-900); Monocytes Percent Auto 9.2 % (3-14); Neutrophils Absolute Auto 4300 /uL (1500-7000); Neutrophils Percent Auto 64.5 % (50-75); Platelet Count 171 X10^3/uL (150-400); Red Blood Cell Count 5.16 X10^6/uL (4.5-5.9); Red Cell Distribution Width 14.2 % (11.6-14.8); White Blood Cell Count 6.6 X10^3/uL (4.5-11.0)
[2023-05-15 13:46] LABS: INR 1.1 (0.9-1.3); Prothrombin Time 12.6 SECONDS (9.4-12.5)
[2023-05-15 13:49] LABS: PTT Partial Thromboplastin Tim 40 SECONDS (25.1-36.5)
[2023-05-15 13:51] LABS: Alanine Aminotransferase 28 IU/L (<50); Albumin 4.2 g/dL (3.5-5.0); Albumin Globulin Ratio 1.2 (1.0-2.8); Alkaline Phosphatase 80 U/L (38-126); Aspartate Aminotransferase 27 IU/L (17-59); BUN Creatinine Ratio 21.1 (6-22); Bilirubin Total 1.2 mg/dL (0.2-1.3); Blood Urea Nitrogen 34 mg/dL (9-20); Calcium 9.4 mg/dL (8.4-10.2); Carbon Dioxide 26 mmol/L (22-32); Chloride 101 mmol/L (98-107); Creatine Kinase 171 U/L (55-170); Estimated Glomerular Filt Rate 48 mL/min (>60); Globulin 3.5 g/dL (1.7-4.1); Glucose 250 mg/dL (80-110); HEMOLYSIS < 15 (0-50); Lipase 801 U/L (23-300); Potassium 3.8 mmol/L (3.4-5.1); Sodium 135 mmol/L (137-145); Total Protein 7.7 g/dL (6.3-8.2)
[2023-05-15 14:02] LABS: Troponin I < 0.012 ng/mL (0.01-0.034)
[2023-05-15] MEDS: SODIUM CHLORIDE 0.9% 1,000 ML 1000 ML IV (14:07)
--- NOTE | 2023-05-15 17:00 | ED.ARRPALP ---
HPI - Arrhythmia/Palpitations General Chief Complaint: Arrhythmia/Palpitations Stated Complaint: afib Time Seen by Provider: 05/15/23 16:58 Source: patient Mode of arrival: Ambulatory Limitations: no limitations History of Present Illness HPI narrative: 62-year-old male with known atrial fibrillation, hypertension, dyslipidemia diabetes. Patient has been on Eliquis for proximally 2 years without any reported miss doses. Patient felt his heart rate was elevated this morning about 5:00 a.m.. He took his 1st dose of flecainide ever at 1:00 p.m. today. He states it was prescribed by cardiology. He has been told to come to the ER for monitoring if he took it. Denies any symptoms no chest pain, no shortness of breath, no nausea no vomiting, no other GI or urinary symptoms. Patient states he is on metoprolol 50 mg b.i.d., losartan, atorvastatin, glipizide, HCTZ, insulin short and long-acting as well as Eliquis. Patient states no other cardiac interventions besides cardioversion once before. He follows with Cardiology through [facility]. Related Data Home Medications Medication Instructions Recorded Confirmed acetaminophen 500 mg tablet 500 mg PO PRN PRN pain #0 tabs 12/01/15 01/22/19 omeprazole 20 mg capsule,delayed 20 mg PO DAILY PRN Acid Reflux ##0 12/01/15 01/22/19 release aspirin 81 mg tablet,delayed 162 mg PO DAILY 01/22/19 01/22/19 release carvedilol 25 mg tablet 25 mg PO BID 01/22/19 09/10/20 glipizide 5 mg tablet, extended 5 mg PO BID 01/22/19 01/22/19 release 24 hr hydrochlorothiazide 25 mg tablet 25 mg PO DAILY 01/22/19 01/22/19 insulin glargine 100 unit/mL (3 40 unit SUBCUT DAILY 01/22/19 01/22/19 mL) subcutaneous pen (Basaglar KwikPen U-100 Insulin) insulin lispro 100 unit/mL 15 unit SUBCUT DAILY 01/22/19 01/22/19 subcutaneous pen (Humalog KwikPen (U-100) Insulin) losartan 25 mg tablet 25 mg PO QPM 01/22/19 01/22/19 lovastatin 20 mg tablet 20 mg PO QPM 01/22/19 01/22/19 apixaban 5 mg tablet (Eliquis) 5 mg PO DAILY 09/10/20 09/10/20 Previous Rx's Medication Instructions Recorded diltiazem HCl 120 mg 120 mg PO DAILY #14 caps 09/10/20 capsule,extended release 24 hr (Cardizem CD) Allergies Allergy/AdvReac Type Severity Reaction Status Date / Time lisinopril Allergy Cough Verified 09/10/20 12:50 morphine AdvReac Vomiting Verified 09/10/20 12:50 Review of Systems Review of Systems ROS Unobtainable: All systems reviewed & are unremarkable except as noted in HPI and below Patient History Medical History Atrial fibrillation Renal cell cancer HTN (hypertension) Diabetes Surgical History History of left nephrectomy No pertinent past surgical history Social History household members: spouse Smoking Status: Never smoker Smoking Status: Never smoker alcohol intake frequency: a few times a month Substance Use Type: does not use Exam Narrative Exam Narrative: GENERAL: Alert and oriented x three, well-appearing male in mild distress. HEENT: Head normocephalic, atraumatic, EOMI, pupils reactive, face symmetric, moist mucous membranes NECK: Supple, full range of motion CARDIOVASCULAR: Irregularly irregular heart rate in the 80s to 90s rate and rhythm without murmurs, rubs or gallops. No JVD. No edema bilateral lower extremities. RESPIRATORY: Breath sounds equal bilaterally, no wheezes rales or rhonchi. ABDOMEN: Soft, nontender. Normoactive bowel sounds all 4 quadrants. No guarding or rebound, rigidity, no mass : No CVA tenderness EXTREMITIES: Normal range of motion, no clubbing or edema. Neurovascularly intact NEUROLOGICAL: Cranial nerves II through XII grossly intact. Moving all extremities SKIN: Warm, dry, no petechiae, no rashes or lesions. Initial Vital Signs Initial Vital Signs: Vital Signs Temperature 97.3 F L 05/15/23 13:10 Pulse Rate 124 H 05/15/23 13:10 Respiratory Rate 18 05/15/23 13:10 Blood Pressure 115/80 05/15/23 13:10 Pulse Oximetry 94 05/15/23 13:10 Oxygen Delivery Method Room Air 05/15/23 13:10 Course Orders Ordered: Discontinued Medications Aspirin (Aspirin 81 Mg Chew Tab) 324 mg PO NOW ONE Stop: 05/15/23 13:25 Last Admin: 05/15/23 14:08 Dose: Not Given Documented By: NEENA Sodium Chloride (Normal Saline 0.9%) 1,000 mls @ 1,000 mls/hr IV BOLUS ONE Stop: 05/15/23 14:23 Last Infusion: 05/15/23 16:07 Dose: Infused Documented By: Admin: 05/15/23 14:07 Dose: 1,000 mls/hr Documented By: NEENA Vital Signs Vital signs: Vital Signs - 8 hr 05/15/23 13:10 05/15/23 13:45 05/15/23 14:00 Temperature 97.3 F L Pulse Rate 124 H 122 H 114 H Respiratory Rate 18 23 17 Blood Pressure 115/80 Pulse Oximetry 94 95 94 Oxygen Delivery Method Room Air Room Air 05/15/23 14:01 05/15/23 14:01 05/15/23 14:30 Temperature Pulse Rate 114 H 110 H Respiratory Rate 15 19 Blood Pressure 108/76 Pulse Oximetry 95 95 Oxygen Delivery Method 05/15/23 14:30 05/15/23 15:00 05/15/23 15:00 Temperature Pulse Rate 110 H Respiratory Rate Blood Pressure 109/78 113/78 Pulse Oximetry 94 Oxygen Delivery Method 05/15/23 15:30 05/15/23 15:30 05/15/23 16:00 Temperature Pulse Rate 110 H Respiratory Rate 14 Blood Pressure 121/70 123/76 Pulse Oximetry 94 Oxygen Delivery Method Room Air 05/15/23 16:00 05/15/23 16:22 05/15/23 16:22 Temperature Pulse Rate 84 105 H Respiratory Rate 19 Blood Pressure 149/91 H Pulse Oximetry 95 94 Oxygen Delivery Method Room Air 05/15/23 16:30 05/15/23 16:30 05/15/23 17:00 Temperature Pulse Rate 85 89 Respiratory Rate 15 21 Blood Pressure 132/85 Pulse Oximetry 94 95 Oxygen Delivery Method 05/15/23 17:00 Temperature Pulse Rate Respiratory Rate Blood Pressure 131/89 Pulse Oximetry Oxygen Delivery Method MDM - Arrhythmia/Palpitations Lab Data 05/15/23 13:31 05/15/23 13:31 Labs: Lab Results 05/15/23 Range/Units 13:31 WBC 6.6 (4.5-11.0) X10^3/uL RBC 5.16 (4.5-5.9) X10^6/uL Hgb 15.1 (13.5-17.5) g/dL Hct 43.4 (41-53) % MCV 84.0 (80-100) fL MCH 29.2 (26-34) PG MCHC 34.8 (30-36) % RDW 14.2 (11.6-14.8) % Plt Count 171 (150-400) X10^3/uL Neut % (Auto) 64.5 (50-75) % Lymph % (Auto) 21.9 L (25-40) % [place] % (Auto) 9.2 (3-14) % Eos % (Auto) 2.9 (2-4) % Baso % (Auto) 1.5 (0-2) % Neut # (Auto) 4300 (7389-6878) /uL Lymph # (Auto) 1400 (8488-2862) /uL [place] # (Auto) 600 (0-900) /uL Eos # (Auto) 200 (0-450) /uL Baso # (Auto) 100 (0-100) /uL PT 12.6 H (9.4-12.5) SECONDS INR 1.1 (0.9-1.3) APTT 40 H (25.1-36.5) SECONDS Sodium 135 L (137-145) mmol/L Potassium 3.8 (3.4-5.1) mmol/L Chloride 101 (98-107) mmol/L Carbon Dioxide 26 (22-32) mmol/L BUN 34 H (9-20) mg/dL Creatinine 1.61 H (0.66-1.25) mg/dL Estimated GFR 48 L (>60) mL/min BUN/Creatinine Ratio 21.1 (6-22) Glucose 250 H (80-110) mg/dL Calcium 9.4 (8.4-10.2) mg/dL Magnesium 2.0 (1.6-2.3) mg/dL Total Bilirubin 1.2 (0.2-1.3) mg/dL AST 27 (17-59) IU/L ALT 28 (<50) IU/L Alkaline Phosphatase 80 (38-126) U/L Total Creatine Kinase 171 H (55-170) U/L Troponin I < 0.012 (0.01-0.034) ng/mL Total Protein 7.7 (6.3-8.2) g/dL Albumin 4.2 (3.5-5.0) g/dL Globulin 3.5 (1.7-4.1) g/dL Albumin/Globulin Ratio 1.2 (1.0-2.8) Lipase 801 H (23-300) U/L Imaging Data Chest x-ray: Radiologist's Impresson: [address] [address] XRay Report Signed Patient: Josh Fung MR#: [id number] : 1960 Acct:[id number] Age/Sex: 62 / M Date of Service: 05/15/23 Loc: ED Accession Number: [id number] Procedure: XR chest 1V Ordering Provider: Pam Mack D.O. PROCEDURE: XR CHEST 1V INDICATIONS: chest pain TECHNIQUE: One view of the chest was acquired. COMPARISON: [facility], , XR CHEST 1V, 09/10/2020, 13:27. FINDINGS: Surgical changes and devices: None. Lungs and pleura: Lungs are clear. No pleural effusions or pneumothorax. Mediastinum: Mediastinal contours appear normal. Heart size is normal. Bones and chest wall: No suspicious bony lesions. Overlying soft tissues appear unremarkable. IMPRESSION: No acute cardiopulmonary abnormality is seen. Dictated by: Katerin Davis M.D. on 05/15/2023 at 13:41 Approved by: Katerin Davis M.D. on 05/15/2023 at 13:41 ECG Data Attestation: I personally reviewed and interpreted this ECG as follows: Interpretation: AFib RVR rate of 124 QRS 86 QTC of 517. No acute ST elevation appreciated nonspecific ST change. [facility] Narrative Medical decision making narrative: 62-year-old male with known history of atrial fibrillation on Eliquis chronically. Patient is on metoprolol. Noted his heart rate was fast. He denies any other symptoms. Took flecainide for the 1st time today that had been prescribed by his business account executive but has been told to come to the ER to be monitored. Patient had 150 mg flecainide at 1:00 p.m. And a L of fluids Patient's labs CBC shows normal hemoglobin normal white count and platelets, INR is 1, creatinine is 1.6 BUN 34, potassium 3 8 Mag is 2. Glucose is 250, lipase is 801, negative BNP, negative troponin. Chest x-ray is negative Heart rate has improved he is much more consistently in the 80s but is still in atrial fibrillation. Discussed with patient possibility for cardioversion on the rate controlled at this time. He defers. Spoke with Dr. Goetz who is on-call for Cardiology. Faxed EKG QTC maybe too long for it continue flecainide so would not give an additional dose and would not continue at this point. Recommends cardioversion and then if QTC is appropriate length could put on flecainide 100 mg b.i.d. and follow up with Cardiology. If patient does not wish for cardioversion hold flecainide continue his metoprolol and follow-up in the next few days with Cardiology. ECHO: EF of 60 65% with no major changes from echo in 2019 After discussion with patient he elects to hold off on cardioversion he states he is overall asymptomatic. Plan for d/c home with short term follow up from cardiology. Discharge Plan Departure Patient Disposition: Home Clinical Impression: Atrial fibrillation with rapid ventricular response Instructions: DI for Atrial Fibrillation Activity Restrictions/Additional Instructions: Please follow up with cardiology, since you have elected to not have cardioversion today call the office for next steps. Do not take any additional flecainide until cleared by Cardiology. Continue your metoprolol as prescribed. You can take an extra dose of metoprolol if your heart rate is elevated above 100 persistently. Please return for new chest pain, shortness of breath, lightheadedness or passing out, new swelling in her extremities or other new or concerning changes. Prescriptions: No Action acetaminophen 500 MG tablet 500 mg PO PRN PRN (Reason: pain) Qty: 0 omeprazole 20 MG capsule,delayed release(DR/EC) 20 mg PO DAILY PRN (Reason: Acid Reflux) Qty: 0 glipizide 5 mg Tablet Extended Release 24hr 5 mg PO BID aspirin 81 mg Tablet,Delayed Release (Dr/Ec) 162 mg PO DAILY losartan 25 mg Tablet 25 mg PO QPM hydrochlorothiazide 25 mg Tablet 25 mg PO DAILY lovastatin 20 mg Tablet 20 mg PO QPM insulin lispro [Humalog KwikPen Insulin] 100 unit/mL Insulin Pen 15 unit subcut DAILY Basaglar KwikPen U-100 Insulin 100 unit/mL (3 mL) Insulin Pen 40 unit SUBCUT DAILY carvedilol 25 mg Tablet 25 mg PO BID Eliquis 5 mg tablet 5 mg PO DAILY diltiazem HCl [Cardizem CD] 120 mg capsule,extended release 24hr 120 mg PO DAILY Qty: 14 0RF Referrals: Taras Calvert MD [Physician] - Paige Serrano PA-C [Primary Care Provider] - Stand Alone Forms: Patient Portal/API
== END 2023-05-15 18:33 | disposition home or self-care (01) ==
PROVIDERS: Emergency Provider Emergency Medicine; PCP Physician Assistant Medical
DX: I48.20 Chronic atrial fibrillation, unspecified (principal); R07.9 Chest pain, unspecified; Z79.01 Long term (current) use of anticoagulants; Z79.899 Other long term (current) drug therapy
CPT/HCPCS: 36415; 71045; 80053; 82550; 83690; 83735; 84484; 85025; 85610; 85730; 93005; 96360; 96361; 99284

== ENCOUNTER 2023-09-19 20:11 | Emergency (ER) | payer OTHER, SELFPAY ==
[2020-09-10 12:29] VITALS: BMI 37.0
[2023-09-19] VITALS (11 sets, daily range): BP systolic 99–130; BP diastolic 63–83; PULSE 84–112; RESP 14–30; TEMP 37.1; O2SAT 94–97; BMI 37.5
--- NOTE | 2023-09-19 20:36 | DI.RAD.S_ITS ---
PROCEDURE: XR CHEST 1V INDICATIONS: chest pain TECHNIQUE: One view of the chest was acquired. COMPARISON: [facility], CT, CT ANGIO CHEST, 07/24/2023, 9:27. [facility], CR, XR CHEST 1V, 05/15/2023, 13:31. [facility], CR, XR CHEST 1V, 09/10/2020, 13:27. FINDINGS: Surgical changes and devices: None. Lungs and pleura: Lungs are clear. No pleural effusions or pneumothorax. Mediastinum: Mediastinal contours appear normal. Heart size is borderline. Bones and chest wall: No suspicious bony lesions. Overlying soft tissues appear unremarkable. IMPRESSION: No acute cardiopulmonary abnormality is seen. Approved by: Chadd Plummer M.D. on 09/19/2023 at 21:47
[2023-09-19 21:29] LABS: Add Manual Diff / Slide Review NO; Basophils Absolute Auto 100 /uL (0-100); Basophils Percent Auto 1.5 % (0-2); Eosinophils Absolute Auto 200 /uL (0-450); Eosinophils Percent Auto 2.6 % (2-4); Hematocrit 40.9 % (41-53); Hemoglobin 14.2 g/dL (13.5-17.5); Lymphocytes Absolute Auto 1900 /uL (1100-4500); Lymphocytes Percent Auto 27.3 % (25-40); Mean Corpuscular HGB Conc 34.6 % (30-36); Mean Corpuscular Hemoglobin 29.3 PG (26-34); Mean Corpuscular Volume 84.7 fL (80-100); Monocytes Absolute Auto 700 /uL (0-900); Monocytes Percent Auto 10.2 % (3-14); Neutrophils Absolute Auto 4200 /uL (1500-7000); Neutrophils Percent Auto 58.4 % (50-75); Platelet Count 149 X10^3/uL (150-400); Red Blood Cell Count 4.84 X10^6/uL (4.5-5.9); Red Cell Distribution Width 14.1 % (11.6-14.8); White Blood Cell Count 7.1 X10^3/uL (4.5-11.0)
[2023-09-19 21:30] LABS: INR 1.1 (0.9-1.3)
[2023-09-19 21:33] LABS: PTT Partial Thromboplastin Tim 37 SECONDS (25.1-36.5)
[2023-09-19 21:35] LABS: Alanine Aminotransferase 25 IU/L (<50); Albumin Globulin Ratio 1.4 (1.0-2.8); Alkaline Phosphatase 88 U/L (38-126); Aspartate Aminotransferase 26 IU/L (17-59); BUN Creatinine Ratio 19.5 (6-22); Blood Urea Nitrogen 43 mg/dL (9-20); Calcium 8.9 mg/dL (8.4-10.2); Carbon Dioxide 28 mmol/L (22-32); Chloride 106 mmol/L (98-107); Creatine Kinase 188 U/L (55-170); Estimated Glomerular Filt Rate 33 mL/min (>60); Globulin 2.8 g/dL (1.7-4.1); Glucose 203 mg/dL (80-110); HEMOLYSIS 18 (0-50); Lipase 250 U/L (23-300); Magnesium 1.9 mg/dL (1.6-2.3); Potassium 3.9 mmol/L (3.4-5.1); Sodium 138 mmol/L (137-145); Total Protein 6.8 g/dL (6.3-8.2)
[2023-09-19 21:47] LABS: Troponin I < 0.012 ng/mL (0.01-0.034)
--- NOTE | 2023-09-19 22:23 | ED.ARRPALP ---
HPI - Arrhythmia/Palpitations General Chief Complaint: Arrhythmia/Palpitations Stated Complaint: afib/sob Time Seen by Provider: 09/19/23 22:23 Source: patient and family Mode of arrival: Ambulatory History of Present Illness HPI narrative: 63-year-old gentleman with a history of diabetes, hyperlipidemia, hypertension, known paroxysmal atrial fibrillation currently on Eliquis presents today complaining of recurrent atrial fibrillation. He did undergo cardiac ablation at [facility] on August 26. This evening he felt his heart go back into atrial fibrillation which typically has an unusual sensation in his throat today it was associated with dyspnea for about an hour. He comes in for further evaluation does not complain of overt chest pain has not been having recent exertional dyspnea nor orthopnea, no lower extremity edema no recent upper respiratory symptoms, fevers, cough or chills. Related Data Home Medications Medication Instructions Recorded Confirmed acetaminophen 500 mg tablet 500 mg PO PRN PRN pain #0 tabs 12/01/15 01/22/19 omeprazole 20 mg capsule,delayed 20 mg PO DAILY PRN Acid Reflux ##0 12/01/15 01/22/19 release aspirin 81 mg tablet,delayed 162 mg PO DAILY 01/22/19 01/22/19 release carvedilol 25 mg tablet 25 mg PO BID 01/22/19 09/10/20 glipizide 5 mg tablet, extended 5 mg PO BID 01/22/19 01/22/19 release 24 hr hydrochlorothiazide 25 mg tablet 25 mg PO DAILY 01/22/19 01/22/19 insulin glargine 100 unit/mL (3 40 unit SUBCUT DAILY 01/22/19 01/22/19 mL) subcutaneous pen (Basaglar KwikPen U-100 Insulin) insulin lispro 100 unit/mL 15 unit SUBCUT DAILY 01/22/19 01/22/19 subcutaneous pen (Humalog KwikPen (U-100) Insulin) losartan 25 mg tablet 25 mg PO QPM 01/22/19 01/22/19 lovastatin 20 mg tablet 20 mg PO QPM 01/22/19 01/22/19 apixaban 5 mg tablet (Eliquis) 5 mg PO DAILY 09/10/20 09/10/20 Previous Rx's Medication Instructions Recorded diltiazem HCl 120 mg 120 mg PO DAILY #14 caps 09/10/20 capsule,extended release 24 hr (Cardizem CD) Allergies Allergy/AdvReac Type Severity Reaction Status Date / Time lisinopril Allergy Cough Verified 09/10/20 12:50 morphine AdvReac Vomiting Verified 09/10/20 12:50 Review of Systems Review of Systems Narrative: Pertinent positive and negative findings as per HPI Patient History Medical History Atrial fibrillation Renal cell cancer HTN (hypertension) Diabetes Surgical History History of left nephrectomy No pertinent past surgical history Social History household members: spouse Smoking Status: Never smoker Smoking Status: Never smoker alcohol intake frequency: a few times a month Substance Use Type: does not use Exam Initial Vital Signs Initial Vital Signs: Vital Signs Temperature 98.8 F 09/19/23 20:29 Pulse Rate 84 09/19/23 20:29 Respiratory Rate 16 09/19/23 20:29 Blood Pressure 127/74 09/19/23 20:29 Pulse Oximetry 97 09/19/23 20:29 Oxygen Delivery Method Room Air 09/19/23 20:29 General: Healthy appearing, in no acute distress. Able to give a complete and coherent history. Well-nourished well-developed HEENT: Moist mucous membranes, normal sclera with reactive pupils, Respiratory: Lungs are clear to auscultation, no wheezing no rales no rhonchi. Full and symmetrical air movement Cardiac: Irregular, rate of 120 Abdomen: Soft, nontender, good bowel tones, no flank pain Skin: Warm and dry, no rashes Neurologic: Grossly neurologically intact with no obvious asymmetries or abnormalities Extremities: No trauma, well perfused Psych: Cooperative, appropriate insight and affect Procedures Cardioversion Time of Cardioversion: 03:00 Consent Signed: Yes Indication: recurrent a fib Stability: Stable Number of attempts (shocks): 1 Joules used: 200 Cardiac rhythm post-cardioversion: NSR Procedural Sedation Time of procedure: 03:00 Consent signed: Yes Time out performed: Yes Indication: cardioversion ASA Class: II Mallampati Airway Classification: Class III Preparation: awake overnight monitor applied, pulse oximeter, supplemental O2 applied, suction/airway equipment at bedside and IV secured IV Propofol dose (mg): 60 Intraservice time/total sedation time (min): 7 ED Sedation Level: Moderate (Concious) Patient Tolerated Procedure: Well Complications: none Course Orders Ordered: ED Orders 09/19/23 20:36 XR chest 1V Stat EKG-12 Lead Stat 09/19/23 21:15 Complete Blood Count AUTO DIFF Stat Comprehensive Metabolic Panel Stat Lipase Stat Magnesium Stat PTT Partial Thromboplastin [place] Stat Prothrombin Time INR Stat Troponin & CK Cardiac Panel Stat Vital Signs Vital signs: Vital Signs - 8 hr 09/19/23 20:29 09/19/23 20:46 09/19/23 20:47 Temperature 98.8 F Pulse Rate 84 108 H 109 H Respiratory Rate 16 Blood Pressure 127/74 Pulse Oximetry 97 96 95 Oxygen Delivery Method Room Air 09/19/23 20:47 09/19/23 21:00 09/19/23 21:01 Temperature Pulse Rate 112 H 112 H Respiratory Rate 29 H 30 H Blood Pressure 130/79 Pulse Oximetry 95 95 Oxygen Delivery Method 09/19/23 21:01 09/19/23 21:17 09/19/23 21:17 Temperature Pulse Rate 108 H Respiratory Rate 21 Blood Pressure 99/76 120/83 Pulse Oximetry 96 Oxygen Delivery Method 09/19/23 21:30 09/19/23 21:30 09/19/23 21:45 Temperature Pulse Rate 104 H 89 Respiratory Rate 20 14 Blood Pressure 110/75 Pulse Oximetry 95 95 Oxygen Delivery Method 09/19/23 21:45 09/19/23 22:00 09/19/23 22:00 Temperature Pulse Rate 89 Respiratory Rate 19 Blood Pressure 119/78 119/63 Pulse Oximetry 94 Oxygen Delivery Method 09/19/23 22:15 09/19/23 22:15 09/19/23 22:30 Temperature Pulse Rate 91 H Respiratory Rate 18 Blood Pressure 125/79 127/77 Pulse Oximetry 94 Oxygen Delivery Method 09/19/23 22:30 Temperature Pulse Rate 106 H Respiratory Rate 16 Blood Pressure Pulse Oximetry 95 Oxygen Delivery Method MDM - Arrhythmia/Palpitations Lab Data 09/19/23 21:15 09/19/23 21:15 Labs: Lab Results 09/19/23 Range/Units 21:15 WBC 7.1 (4.5-11.0) X10^3/uL RBC 4.84 (4.5-5.9) X10^6/uL Hgb 14.2 (13.5-17.5) g/dL Hct 40.9 L (41-53) % MCV 84.7 (80-100) fL MCH 29.3 (26-34) PG MCHC 34.6 (30-36) % RDW 14.1 (11.6-14.8) % Plt Count 149 L (150-400) X10^3/uL Neut % (Auto) 58.4 (50-75) % Lymph % (Auto) 27.3 (25-40) % [place] % (Auto) 10.2 (3-14) % Eos % (Auto) 2.6 (2-4) % Baso % (Auto) 1.5 (0-2) % Neut # (Auto) 4200 (2937-4375) /uL Lymph # (Auto) 1900 (2691-3768) /uL [place] # (Auto) 700 (0-900) /uL Eos # (Auto) 200 (0-450) /uL Baso # (Auto) 100 (0-100) /uL PT 13.0 H (9.4-12.5) SECONDS INR 1.1 (0.9-1.3) APTT 37 H (25.1-36.5) SECONDS Sodium 138 (137-145) mmol/L Potassium 3.9 (3.4-5.1) mmol/L Chloride 106 (98-107) mmol/L Carbon Dioxide 28 (22-32) mmol/L BUN 43 H (9-20) mg/dL Creatinine 2.20 H (0.66-1.25) mg/dL Estimated GFR 33 L (>60) mL/min BUN/Creatinine Ratio 19.5 (6-22) Glucose 203 H (80-110) mg/dL Calcium 8.9 (8.4-10.2) mg/dL Magnesium 1.9 (1.6-2.3) mg/dL Total Bilirubin 1.0 (0.2-1.3) mg/dL AST 26 (17-59) IU/L ALT 25 (<50) IU/L Alkaline Phosphatase 88 (38-126) U/L Total Creatine Kinase 188 H (55-170) U/L Troponin I < 0.012 (0.01-0.034) ng/mL Total Protein 6.8 (6.3-8.2) g/dL Albumin 4.0 (3.5-5.0) g/dL Globulin 2.8 (1.7-4.1) g/dL Albumin/Globulin Ratio 1.4 (1.0-2.8) Lipase 250 (23-300) U/L MDM Narrative Medical decision making narrative: CC: History of paroxysmal atrial fibrillation, anticoagulated, currently in atrial fibrillation with rapid ventricular response at a rate of 122 Complicating co-morbidities: Hypertension, hyperlipidemia, diabetes, paroxysmal AFib Data collected from: patient Medical records reviewed: ER note from May 15, 2023 with episode of atrial fibrillation for which he took a dose of flecainide is reviewed. At that time decision to not cardiovert as he seemed relatively rate controlled was made. Differential considered: Recurrent atrial fibrillation, acute coronary syndrome, congestive heart failure, pulmonary embolism Exam documented above, pertinent findings include: Irregular heart rate otherwise completely benign exam Lab Test results independently reviewed as above. Pertinent findings: CBC is unremarkable Chemistries show a slight increase in creatinine from 1.6 up to 2.2. Troponin is undetectable Magnesium is appropriate Lipase is unremarkable Independently reviewed EKG: Atrial fibrillation with rapid ventricular response rate of 122. No acute ischemic changes Imaging studies independently reviewed: Chest x-ray is unremarkable Consultations: Discussion with Dr. Calvert. Recommended an additional 50 mg of flecainide now and proceeding with cardioversion given the fact that he is anticoagulated. Treatments: Conscious sedation with propofol, Cardioversion successful Discussion: 63-year-old gentleman with recurrent atrial fibrillation 1 month post cardiac ablation. Recurrent AFib this evening while watching TV on the couch. Workup is unremarkable with undetectable troponin and normal electrolytes. In consultation with Dr. Rangel, on-call rock splitter, patient was cardioverted successfully. Recommendation was to increase his flecainide 2 100 mg b.i.d.. We will message Dr. Cheatham to let him know visit and cardioversion. Question tolerated procedure well is alert and appropriate post sedation and is safe for discharge home understands need for follow up and increase in his flecainide Discharge Plan Departure Patient Disposition: Home Clinical Impression: Atrial fibrillation with rapid ventricular response Instructions: DI for Atrial Fibrillation, DI for Moderate Sedation Activity Restrictions/Additional Instructions: Thank you for coming in today You were right that you had again gone back into atrial fibrillation Because you have been taking your anticoagulant, you know the exact time that it happened cardioversion with safe. In the emergency department you are cardioverted back to sinus rhythm. This took a single shock and you tolerated the propofol sedation nicely I will let Dr. Cheatham know that you are in the ER and we did cardiovert you. Cardiology recommendation was to increase your flecainide to 100 mg b.i.d.. Please do follow up with Dr. Cheatham If you find that you are getting worse or develop any new symptoms, please feel free to return to the emergency department for further evaluation. Prescriptions: No Action acetaminophen 500 MG tablet 500 mg PO PRN PRN (Reason: pain) Qty: 0 omeprazole 20 MG capsule,delayed release(DR/EC) 20 mg PO DAILY PRN (Reason: Acid Reflux) Qty: 0 glipizide 5 mg Tablet Extended Release 24hr 5 mg PO BID aspirin 81 mg Tablet,Delayed Release (Dr/Ec) 162 mg PO DAILY losartan 25 mg Tablet 25 mg PO QPM hydrochlorothiazide 25 mg Tablet 25 mg PO DAILY lovastatin 20 mg Tablet 20 mg PO QPM insulin lispro [Humalog KwikPen Insulin] 100 unit/mL Insulin Pen 15 unit subcut DAILY Basaglar KwikPen U-100 Insulin 100 unit/mL (3 mL) Insulin Pen 40 unit SUBCUT DAILY carvedilol 25 mg Tablet 25 mg PO BID Eliquis 5 mg tablet 5 mg PO DAILY diltiazem HCl [Cardizem CD] 120 mg capsule,extended release 24hr 120 mg PO DAILY Qty: 14 0RF Referrals: Paige Serrano PA-C [Primary Care Provider] - Stand Alone Forms: Patient Portal/API
[2023-09-20] VITALS (29 sets, daily range): BP systolic 124–172; BP diastolic 71–98; PULSE 62–112; RESP 13–27; O2SAT 94–97
[2023-09-20] MEDS: FLECAINIDE 100 MG TABLET 50 MG PO (02:55)
[2023-09-20] MEDS: propofoL 200 MG/20 ML VIAL IV (02:58)
== END 2023-09-20 04:35 | disposition home or self-care (01) ==
PROVIDERS: Emergency Provider Emergency Medicine; PCP Physician Assistant Medical
DX: I48.91 Unspecified atrial fibrillation (principal); Z79.01 Long term (current) use of anticoagulants
CPT/HCPCS: 36415; 71045; 80053; 82550; 83690; 83735; 84484; 85025; 85610; 85730; 92960; 93005; 96374; 99284; 99285; J2704

== ENCOUNTER → 2024-01-16 09:19 | Outpatient (CLI) | payer OTHER, SELFPAY ==
[2020-09-10 12:29] VITALS: BMI 37.0
[2024-01-16 10:15] LABS: Add Manual Diff / Slide Review NO; Basophils Absolute Auto 100 /uL (0-100); Basophils Percent Auto 1.2 % (0-2); Eosinophils Absolute Auto 200 /uL (0-450); Eosinophils Percent Auto 3.1 % (2-4); Hematocrit 42.7 % (41-53); Hemoglobin 14.7 g/dL (13.5-17.5); Lymphocytes Absolute Auto 1400 /uL (1100-4500); Lymphocytes Percent Auto 22.1 % (25-40); Mean Corpuscular HGB Conc 34.4 % (30-36); Mean Corpuscular Hemoglobin 29.1 PG (26-34); Mean Corpuscular Volume 84.6 fL (80-100); Monocytes Absolute Auto 700 /uL (0-900); Monocytes Percent Auto 11.2 % (3-14); Neutrophils Absolute Auto 3800 /uL (1500-7000); Neutrophils Percent Auto 62.4 % (50-75); Platelet Count 160 X10^3/uL (150-400); Red Blood Cell Count 5.05 X10^6/uL (4.5-5.9); Red Cell Distribution Width 14.3 % (11.6-14.8); White Blood Cell Count 6.1 X10^3/uL (4.5-11.0)
[2024-01-16 10:33] LABS: BUN Creatinine Ratio 23.9 (6-22); Blood Urea Nitrogen 45 mg/dL (9-20); Calcium 9.6 mg/dL (8.4-10.2); Carbon Dioxide 25 mmol/L (22-32); Chloride 102 mmol/L (98-107); Estimated Glomerular Filt Rate 39 mL/min (>60); Glucose 186 mg/dL (80-110); HEMOLYSIS < 15 (0-50); Potassium 3.9 mmol/L (3.4-5.1); Sodium 135 mmol/L (137-145)
== END ==
PROVIDERS: PCP Physician Assistant Medical; Referring Provider Nurse Practitioner Family; Visit Provider Nurse Practitioner Family
DX: I48.0 Paroxysmal atrial fibrillation (principal)
CPT/HCPCS: 36415; 80048; 85025

== ENCOUNTER → 2024-03-25 16:55 | Outpatient (CLI) | payer OTHER, SELFPAY ==
[2020-09-10 12:29] VITALS: BMI 37.0
[2024-03-25 17:44] LABS: Add Manual Diff / Slide Review NO; Basophils Absolute Auto 0 /uL (0-100); Basophils Percent Auto 0.6 % (0-2); Eosinophils Absolute Auto 300 /uL (0-450); Eosinophils Percent Auto 3.9 % (2-4); Hematocrit 41.7 % (41-53); Hemoglobin 14.5 g/dL (13.5-17.5); Lymphocytes Absolute Auto 1400 /uL (1100-4500); Lymphocytes Percent Auto 18.9 % (25-40); Mean Corpuscular HGB Conc 34.8 % (30-36); Mean Corpuscular Hemoglobin 29.6 PG (26-34); Mean Corpuscular Volume 85.1 fL (80-100); Monocytes Absolute Auto 600 /uL (0-900); Monocytes Percent Auto 8.3 % (3-14); Neutrophils Absolute Auto 5100 /uL (1500-7000); Neutrophils Percent Auto 68.3 % (50-75); Platelet Count 158 X10^3/uL (150-400); Red Cell Distribution Width 13.8 % (11.6-14.8); White Blood Cell Count 7.4 X10^3/uL (4.5-11.0)
[2024-03-25 18:11] LABS: BUN Creatinine Ratio 15.8 (6-22); Blood Urea Nitrogen 32 mg/dL (9-20); Calcium 9.2 mg/dL (8.4-10.2); Carbon Dioxide 24 mmol/L (22-32); Chloride 104 mmol/L (98-107); Estimated Glomerular Filt Rate 36 mL/min (>60); Glucose 153 mg/dL (80-110); HEMOLYSIS < 15 (0-50); Potassium 3.8 mmol/L (3.4-5.1); Sodium 137 mmol/L (137-145)
== END ==
PROVIDERS: PCP Physician Assistant Medical; Referring Provider Internal Medicine Cardiovascular Disease; Visit Provider Internal Medicine Cardiovascular Disease
DX: I48.3 Typical atrial flutter (principal)
CPT/HCPCS: 36415; 80048; 85025

== ENCOUNTER 2025-02-22 17:13 | Emergency (ER) | payer OTHER, SELFPAY ==
[2020-09-10 12:29] VITALS: BMI 37.0
[2025-02-22 17:50] VITALS: BP 169/85; PULSE 68; RESP 15; TEMP 36.5; O2SAT 96; BMI 37.8
--- NOTE | 2025-02-22 18:06 | DI.US.S_ITS ---
PROCEDURE: US PERIPH VENOUS LOW EXTREM LT INDICATIONS: edema TECHNIQUE: Real-time imaging, as well as color and pulse Doppler interrogation, were performed of the lower extremity deep veins from the inguinal ligament to the popliteal fossa, with documentation of the visualized calf veins. COMPARISON: None. FINDINGS: The common femoral, femoral, and popliteal veins are normally compressible, and free of intraluminal thrombus. The posterior tibial and peroneal veins of the calf are not visualized secondary to patient body habitus. Color and pulse Doppler demonstrate normal phasic intraluminal flow. There is normal augmentation response to distal compression maneuver. Mild lower extremity subcutaneous edema. IMPRESSION: No findings of lower extremity deep venous thrombosis. Dictated by: Veto Cardona M.D. on 02/22/2025 at 20:30 Approved by: Veto Cardona M.D. on 02/22/2025 at 20:32
[2025-02-22 18:47] LABS: Add Manual Diff / Slide Review NO; Hematocrit 38.9 % (41-53); Hemoglobin 13.6 g/dL (13.5-17.5); Lymphocytes Absolute Auto 1100 /uL (1100-4500); Mean Corpuscular HGB Conc 35.0 % (30-36); Mean Corpuscular Hemoglobin 29.5 PG (26-34); Mean Corpuscular Volume 84.5 fL (80-100); Platelet Count 130 X10^3/uL (150-400)
[2025-02-22 19:02] LABS: Alanine Aminotransferase 23 IU/L (<50); Albumin 4.1 g/dL (3.5-5.0); Albumin Globulin Ratio 1.4 (1.0-2.8); Alkaline Phosphatase 94 U/L (38-126); Blood Urea Nitrogen 38 mg/dL (9-20); Calcium 8.8 mg/dL (8.4-10.2); Carbon Dioxide 24 mmol/L (22-32); Chloride 105 mmol/L (98-107); Estimated Glomerular Filt Rate 29 mL/min (>60); Globulin 3.0 g/dL (1.7-4.1); Glucose 147 mg/dL (70-99); HEMOLYSIS < 15 (0-50); Lipase 373 U/L (23-300); Magnesium 2.2 mg/dL (1.6-2.3); Potassium 4.2 mmol/L (3.4-5.1); Sodium 138 mmol/L (137-145); Total Protein 7.1 g/dL (6.3-8.2)
--- NOTE | 2025-02-22 19:10 | PC.NURSE ---
Handoff report received from TIFFANIE Umana
[2025-02-22 19:15] LABS: NT-proBNP (BNP-Adult 18+) 193 pg/mL (<125); Troponin I < 0.012 ng/mL (0.01-0.034)
--- NOTE | 2025-02-22 23:16 | ED.EXTPRO ---
HPI - Extremity Problem General Chief complaint: Extremity Problem,Nontraumatic Stated complaint: leg weak/swelling pcp ref x 5 days Time Seen by Provider: 02/22/25 18:05 Source: patient, RN notes reviewed and old records reviewed Mode of arrival: Ambulatory Limitations: no limitations History of Present Illness HPI Narrative: 64-year-old male history of heart failure, atrial fibrillation on Eliquis with prior ablation x2, hypertension, diabetes on insulin, single kidney with chronic kidney disease presents with a complaint of increased swelling of bilateral lower extremities. Patient notes he has had issues with a his blood pressure chronically for the past several months his secondary set up man has been adjusting his medications. They increased his amlodipine to 5 mg b.i.d. last week and he noticed increased swelling in his lower extremities and now some weeping. Patient was not touch with a his physician they noted if it was continuing to worsen he should come to the emergency department. He denies chest pain no shortness of breath, no lightheadedness no other GI or urinary symptoms noted. Patient has not had any warmth or redness in his lower extremities. He notes they did stop his hydrochlorothiazide about a month ago. Home medications include amlodipine 5 mg b.i.d., glipizide, statin, losartan 50 mg daily, flecainide, carvedilol 6.25 mg b.i.d., metoprolol 50 mg b.i.d. Humalog, Lantus. Patient follows with Dr. Cheatham for cardiology/EP. Related Data Home Medications ?Medication ?Instructions ?Recorded ?Confirmed acetaminophen 500 mg tablet 500 mg PO PRN PRN pain #0 tabs 12/01/15 01/22/19 omeprazole 20 mg capsule,delayed 20 mg PO DAILY PRN Acid Reflux ##0 12/01/15 01/22/19 release aspirin 81 mg tablet,delayed 162 mg PO DAILY 01/22/19 01/22/19 release carvedilol 25 mg tablet 25 mg PO BID 01/22/19 09/10/20 glipizide 5 mg tablet, extended 5 mg PO BID 01/22/19 01/22/19 release 24 hr hydrochlorothiazide 25 mg tablet 25 mg PO DAILY 01/22/19 01/22/19 insulin glargine 100 unit/mL (3 40 unit SUBCUT DAILY 01/22/19 01/22/19 mL) subcutaneous pen (Basaglar KwikPen U-100 Insulin) insulin lispro 100 unit/mL 15 unit SUBCUT DAILY 01/22/19 01/22/19 subcutaneous pen (Humalog KwikPen (U-100) Insulin) losartan 25 mg tablet 25 mg PO QPM 01/22/19 01/22/19 lovastatin 20 mg tablet 20 mg PO QPM 01/22/19 01/22/19 apixaban 5 mg tablet (Eliquis) 5 mg PO DAILY 09/10/20 09/10/20 Previous Rx's ?Medication ?Instructions ?Recorded diltiazem HCl 120 mg 120 mg PO DAILY #14 caps 09/10/20 capsule,extended release 24 hr (Cardizem CD) losartan 50 mg tablet 50 mg PO BID #30 tabs 02/22/25 Allergies Allergy/AdvReac Type Severity Reaction Status Date / Time lisinopril Allergy Cough Verified 09/10/20 12:50 morphine AdvReac Vomiting Verified 09/10/20 12:50 Review of Systems Review of Systems ROS Unobtainable: All systems reviewed & are unremarkable except as noted in HPI and below Patient History Medical History Atrial fibrillation Renal cell cancer HTN (hypertension) Diabetes Surgical History History of left nephrectomy No pertinent past surgical history Social History household members: spouse Smoking Status: Never smoker Smoking Status: Never smoker alcohol intake frequency: a few times a month Exam Narrative Exam Narrative: GENERAL: Alert and oriented x three, male in mild distress HEENT: Head normocephalic, atraumatic, EOMI, pupils reactive, face symmetric, moist mucous membranes NECK: Supple, full range of motion CARDIOVASCULAR: Regular rate and rhythm without murmurs, rubs or gallops. No JVD. RESPIRATORY: Breath sounds equal bilaterally, no wheezes rales or rhonchi. ABDOMEN: Soft, nontender. Normoactive bowel sounds all 4 quadrants. No guarding or rebound, rigidity, no mass : No CVA tenderness EXTREMITIES: Normal range of motion, bilateral lower extremity edema, scant edema bilaterally. Neurovascularly intact NEUROLOGICAL: Cranial nerves II through XII grossly intact. Moving all extremities SKIN: Warm, dry, no petechiae, no rashes or lesions. Initial Vital Signs Initial Vital Signs: Vital Signs Temperature 97.7 F 02/22/25 17:50 Pulse Rate 68 02/22/25 17:50 Respiratory Rate 15 02/22/25 17:50 Blood Pressure 169/85 H 02/22/25 17:50 Pulse Oximetry 96 02/22/25 17:50 Oxygen Delivery Method Room Air 02/22/25 17:50 Course Orders Ordered: ED Orders 02/22/25 18:06 periph venous low extrem lt Stat 02/22/25 18:35 Complete Blood Count AUTO DIFF Stat Comprehensive Metabolic Panel Stat Lipase Stat Magnesium Stat NT-proBNP (BNP-Adult 18+) Stat Troponin I Stat Vital Signs Vital signs: Vital Signs - 8 hr 02/22/25 23:52 Temperature 97.9 F Pulse Rate 68 Respiratory Rate 20 Blood Pressure 196/104 H Pulse Oximetry 97 Oxygen Delivery Method Room Air MDM - Extremity (Nontraumatic) Lab Data 02/22/25 18:35 02/22/25 18:35 Labs: Lab Results 02/22/25 Range/Units 18:35 WBC 6.3 (4.5-11.0) X10^3/uL RBC 4.60 (4.5-5.9) X10^6/uL Hgb 13.6 (13.5-17.5) g/dL Hct 38.9 L (41-53) % MCV 84.5 (80-100) fL MCH 29.5 (26-34) PG MCHC 35.0 (30-36) % RDW 14.3 (11.6-14.8) % Plt Count 130 L (150-400) X10^3/uL Neut % (Auto) 69.8 (50-75) % Lymph % (Auto) 17.5 L (25-40) % [place] % (Auto) 8.6 (3-14) % Eos % (Auto) 3.5 (2-4) % Baso % (Auto) 0.6 (0-2) % Neut # (Auto) 4400 (8718-4951) /uL Lymph # (Auto) 1100 (3965-0568) /uL [place] # (Auto) 500 (0-900) /uL Eos # (Auto) 200 (0-450) /uL Baso # (Auto) 0 (0-100) /uL Sodium 138 (137-145) mmol/L Potassium 4.2 (3.4-5.1) mmol/L Chloride 105 (98-107) mmol/L Carbon Dioxide 24 (22-32) mmol/L BUN 38 H (9-20) mg/dL Creatinine 2.39 H (0.66-1.25) mg/dL Estimated GFR 29 L (>60) mL/min BUN/Creatinine Ratio 15.9 (6-22) Glucose 147 H (70-99) mg/dL Calcium 8.8 (8.4-10.2) mg/dL Magnesium 2.2 (1.6-2.3) mg/dL Total Bilirubin 0.8 (0.2-1.3) mg/dL AST 28 (17-59) IU/L ALT 23 (<50) IU/L Alkaline Phosphatase 94 (38-126) U/L Troponin I < 0.012 (0.01-0.034) ng/mL NT-Pro-B Natriuret Pep 193 H (<125) pg/mL Total Protein 7.1 (6.3-8.2) g/dL Albumin 4.1 (3.5-5.0) g/dL Globulin 3.0 (1.7-4.1) g/dL Albumin/Globulin Ratio 1.4 (1.0-2.8) Lipase 373 H (23-300) U/L [facility] Narrative Medical decision making narrative: Labs show white count of 6.3 hemoglobin of 13.6 platelets are 130 patient has been intermittently low in the past, creatinine today is 2.39 was 2.02 on 03/25/2024 with a BUN of 38 electrolytes are otherwise appropriate glucose is 147 LFTs are normal troponins less than 0.012 with a BNP of 193., lipase is 373. Lower extremity DVT ultrasound is negative for lower extremity DVT. Mild lower extremity subcutaneous edema noted. 64-year-old male history of chronic kidney disease, single kidney recently had his blood pressure medication adjusted had his amlodipine increased from 2.5-5 mg has developed increased bilateral lower extremity swelling which he has been warned by his secondary set up man. He has been referred to nephrology but has not seen them yet. Discussed we will increase his losartan to 50 mg twice daily and decrease his amlodipine back to 2.5 mg. Patient also received a copy of his labs to share with a his physician. Discharge Plan Departure Patient Disposition: Home Clinical Impression: Bilateral edema of lower extremity Instructions: DI for Peripheral Edema -- Bilateral Activity Restrictions/Additional Instructions: Suspect your increase of edema in your lower extremities is secondary to your amlodipine. Please decrease your dose back to 2.5 mg. I would recommend increasing your losartan from 50 mg once daily to 50 mg twice daily. A printed prescriptions included with your papers. You do need to have your creatinine or kidney function rechecked in the next week. Talk with your secondary set up man regarding your dosage to make sure they agree with this plan. I think it is also a good idea that you have a referral out to follow up with Nephrology. Please return if you develop chest pain, shortness of breath, any lightheadedness or passing out, rapidly worsening swelling of your extremities or other new or concerning changes. Prescriptions: New losartan 50 mg tablet 50 mg PO BID Qty: 30 0RF No Action acetaminophen 500 MG tablet 500 mg PO PRN PRN (Reason: pain) Qty: 0 omeprazole 20 MG capsule,delayed release(DR/EC) 20 mg PO DAILY PRN (Reason: Acid Reflux) Qty: 0 glipizide 5 mg Tablet Extended Release 24hr 5 mg PO BID aspirin 81 mg Tablet,Delayed Release (Dr/Ec) 162 mg PO DAILY losartan 25 mg Tablet 25 mg PO QPM hydrochlorothiazide 25 mg Tablet 25 mg PO DAILY lovastatin 20 mg Tablet 20 mg PO QPM insulin lispro [Humalog KwikPen Insulin] 100 unit/mL Insulin Pen 15 unit subcut DAILY Basaglar KwikPen U-100 Insulin 100 unit/mL (3 mL) Insulin Pen 40 unit SUBCUT DAILY carvedilol 25 mg Tablet 25 mg PO BID Eliquis 5 mg tablet 5 mg PO DAILY diltiazem HCl [Cardizem CD] 120 mg capsule,extended release 24hr 120 mg PO DAILY Qty: 14 0RF Referrals: Paige Serrano PA-C [Primary Care Provider, Family Practice] Stand Alone Forms: Patient Portal/API
[2025-02-22 23:52] VITALS: BP 196/104; PULSE 68; RESP 20; TEMP 36.6; O2SAT 97
== END 2025-02-22 23:54 | disposition home or self-care (01) ==
PROVIDERS: Emergency Medicine; Emergency Provider Emergency Medicine; PCP Physician Assistant Medical
DX: R60.0 Localized edema (principal)
CPT/HCPCS: 36415; 80053; 83690; 83735; 83880; 84484; 85025; 93971; 99283; 99284